=== PATIENT | male | born 1935 | race Caucasian/White ===

== ENCOUNTER 2021-08-24 14:09 | Observation (INO) ==
--- NOTE | 2021-08-24 14:26 | Emergency Department Note ---
HPI General Chief complaint: Recheck/Abnormal Lab/Rx Stated complaint: "im here for blood" Time Seen by Provider: 08/24/21 14:25 Source: patient Mode of arrival: ambulatory Limitations: no limitations History of Present Illness HPI Narrative: 86-year-old male presenting with intermittent lightheadedness. Patient has a known bladder mass and follows with Dr. Mehta of urology. He has been having hematuria and his hemoglobin 8 days ago was 7.7. Sent to the ED for admission and possible blood transfusion as Dr. Mehta will perform a TURBT tomorrow morning. Patient noted that he intermittently feels lightheaded when he stands up but otherwise has no new complaints. Denies headache, chest pain, abdominal pain, vomiting, blood in the stool, or melena. Not on anticoagulation. Related Data Home Medications Medication Instructions Recorded Confirmed latanoprost 0.005 % eye drops 1 drp OPHTHALMIC QPM /09/1408/24/21 ascorbic acid (vitamin C) 500 mg 500 mg PO QDAY cap 02/10/20 08/24/21 capsule aspirin 81 mg chewable tablet 81 mg PO QDAY tab 02/10/20 08/24/21 cholecalciferol (vitamin D3) 50 2,000 unit PO QDAY cap 02/10/20 08/24/21 mcg (2,000 unit) capsule dorzolamide-timolol (PF) 2 %-0.5 % 1 drp OPHTHALMIC BID each 02/10/20 08/24/21 eye drops in a dropperette inulin 2 gram chewable tablet 2 g PO QDAY tab 02/10/20 08/24/21 (Fiber Gummies) mecobalamin (vitamin B12) 1,000 1,000 mcg SUBLINGUAL QDAY tab 02/10/20 08/24/21 mcg disintegrating tablet,sublingual omega 4-uwl-owg-fish oil 1,000 mg 1 cap PO QDAY cap 02/10/20 08/24/21 (120 mg-180 mg) capsule brimonidine 0.2 % eye drops 1 drp OPHTHALMIC (EYE) BID ml 08/16/20 08/24/21 cyanocobalamin (vitamin B-12) 1,000 mcg PO QDAY 08/24/21 08/24/21 1,000 mcg tablet hydrochlorothiazide 50 mg tablet 50 mg PO QDAY 08/24/21 08/24/21 multivitamin 1 tab PO QDAY 08/24/21 08/24/21 Previous Rx's Medication Instructions Recorded metformin 500 mg tablet 1,000 mg PO BID #360 tab 09/06/20 atorvastatin 40 mg tablet 40 mg PO DAILY #90 tab 09/20/20 glipizide 5 mg tablet 5 mg PO QDAY #90 tab 02/01/21 amlodipine 5 mg tablet 5 mg PO BID #180 tab 03/07/21 levothyroxine 75 mcg tablet 75 mcg PO DAILY #90 tab 04/18/21 gabapentin 300 mg capsule 300 mg PO QHS #90 cap 05/30/21 losartan 100 1 tab PO QDAY #90 tab 07/11/21 mg-hydrochlorothiazide 25 mg tablet blood sugar diagnostic #100 each 07/25/21 tamsulosin 0.4 mg capsule 0.4 mg PO QHS #30 cap 08/16/21 nitrofurantoin 100 mg PO BID 10 Days #20 cap 08/22/21 monohydrate/macrocrystals 100 mg capsule Allergies Allergy/AdvReac Type Severity Reaction Status Date / Time No Known Drug Allergies Allergy Verified 08/24/21 14:11 Review of Systems ROS ROS Narrative: Narrative: Constitutional: Denies fever Eyes: Denies vision change Cardiovascular: Denies chest pain Respiratory: Denies shortness of breath or cough Gastrointestinal: Denies abdominal pain, nausea or vomiting Genitourinary: Reports as per HPI Musculoskeletal: Denies back pain Integumentary: Denies rash Neurological: Denies headache or weakness Psychiatric: Denies anxiety PENDING SALE TO [facility] Narrative Patient History Narrative: Narrative: Medical/Surgical/Family History All Active Problems (Updated 08/24/21 @ 16:42 by Jackson Porter MD) Acquired hypothyroidism (Chronic) Essential hypertension (Chronic) Nausea & vomiting (Chronic) UTI (urinary tract infection) due to Enterococcus (Chronic) Dehydration (Chronic) Hypothyroidism, unspecified (Chronic) Spinal stenosis, lumbar region with neurogenic claudication (Chronic) Low back pain (Chronic) Radiculopathy, lumbar region (Chronic) Chronic pain (Chronic) Unspecified glaucoma (Chronic) Hypercholesterolemia (Chronic) History of surgery (Chronic) Hip pain, left (Chronic) Medicare annual wellness visit, subsequent (Acute) 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) Radiculopathy, lumbosacral region (Acute) CTS (carpal tunnel syndrome) (Acute) Gross hematuria (Acute) Nausea (Acute) Fever (Acute) BPH loc w urin obs/LUTS (Acute) Renal failure (Acute) Anemia (Acute) Bladder mass (Acute) Ureteral stone (Acute) Bladder mass (Acute) Anemia (Acute) Medical History Acquired hypothyroidism Chronic pain Essential hypertension Fever Hypercholesterolemia Hypothyroidism, unspecified Low back pain Medicare annual wellness visit, subsequent Nausea Radiculopathy, lumbar region Radiculopathy, lumbosacral region Spinal stenosis, lumbar region with neurogenic claudication Unspecified glaucoma Surgical History History of surgery TF NAKUL #2 Lt. L5-S1 w/o sed 11/24/2019 TF NAKUL #1 Lt. L5-S1 w/sed 07/08/2019 LESI #3 L4-5 w/o sed 10/24/2018 LESI #2 L4-5 w/o sed 09/16/18 LESI #1 L4-5 w/o sed 08/21/2018 Family History Other Cancer Hypertension No pertinent family history Social History Smoking Status: Unknown if ever smoked Alcohol Intake Frequency: does not drink Exam Narrative Narrative: Narrative: General Limitations: no limitations General appearance: Present alert and in no apparent distress Head Head: Present atraumatic and normocephalic Eye Eye: Present normal appearance and EOMI; Absent scleral icterus or conjunctival injection ENT ENT: Present mucous membranes moist Neck Neck: Present trachea midline Chest Chest: Present symmetric chest wall rise Respiratory Respiratory: Present normal lung sounds bilaterally; Absent respiratory distress, wheezes, stridor, accessory muscle use or prolonged expiratory phase Cardiovascular Cardiovascular: Present regular rate and normal rhythm; Absent systolic murmur or diastolic murmur Adbominal Abdominal: Present soft; Absent distention, tenderness, guarding, rebound or rigidity Extremities Extremities: Present normal inspection; Absent pretibial edema Neurological Neurological: Present alert and oriented X3; Absent motor sensory deficit Psychiatric Psychiatric: Present normal affect and normal mood Skin Skin: Present warm (WNL) and dry Course Consultations Consultation #1: Dr. Mehta, urology Consultation #2: Dr. Muse, hospitalist Vital Signs Vital signs: Vital Signs Temperature 97.1 F 08/24/21 14:09 Pulse Rate 63 08/24/21 14:09 Respiratory Rate 16 08/24/21 14:09 Blood Pressure 156/62 08/24/21 14:09 Pulse Oximetry (%) 99 08/24/21 14:09 Temperature 97.1 F 08/24/21 14:09 Pulse Rate 61 08/24/21 17:02 Respiratory Rate 16 08/24/21 14:09 Blood Pressure 136/60 08/24/21 14:56 Pulse Oximetry (%) 95 08/24/21 17:02 [facility] Narrative Medical decision making narrative: 86-year-old male presenting with bladder mass and anemia. Hemoglobin today is 8.2. Vital signs are stable. EKG with no ischemic changes. Given that he is having a procedure tomorrow and has had some lightheadedness, 1 unit PRBCs ordered. Patient made n.p.o. at midnight. Endorsed to Dr. Muse for admission. Lab Data Lab results reviewed: Yes I reviewed the patient's lab results. Result diagrams: 08/24/21 14:35 08/24/21 14:35 Labs: Lab Results 08/24/21 08/24/21 Range/Units 14:35 14:35 WBC 4.8 (4.5-11.0) K/mcL RBC 2.92 L (4.63-6.08) M/mcL Hgb 8.2 L (13.7-17.5) g/dL Hct 26.8 L (40.1-51.0) % MCV 91.8 (80.0-100.0) fL MCH 28.1 (26.0-34.0) pg MCHC 30.6 L (31.0-36.0) g/dL RDW 13.8 (11.5-14.5) % Plt Count 295 (140-440) K/mcL MPV 10.3 (7.4-10.4) fL Neut % (Auto) 64.8 (38.0-78.0) % Lymph % (Auto) 17.0 (15.5-49.0) % Desha % (Auto) 11.0 (1.0-12.0) % Eos % (Auto) 6.4 (0.0-7.0) % Baso % (Auto) 0.8 (0.0-2.0) % Lymph # (Auto) 0.82 L (1.50-4.80) K/mcL Desha # (Auto) 0.53 (0.10-0.90) K/mcL Eos # (Auto) 0.31 (0.00-0.70) K/mcL Baso # (Auto) 0.04 (0.00-0.30) K/mcL Absolute Neutrophils 3.13 (1.80-8.00) K/mcL Sodium 138 (133-145) mmol/L Potassium 4.4 (3.3-5.1) mmol/L Chloride 100 (96-108) mmol/L Carbon Dioxide 24 (22-30) mmol/L Anion Gap 14.0 (8.0-16.0) BUN 28 H (8-23) mg/dL Creatinine 1.5 H (0.7-1.2) mg/dL GFR Calculation 41 Glucose 114 H (70-105) mg/dL Calcium 9.7 (8.6-10.4) mg/dL Total Bilirubin 0.2 (0.1-1.0) mg/dL AST 18 (<40) U/L ALT 10 (<40) U/L Alkaline Phosphatase 168 H (39-117) U/L Total Protein 7.5 (5.9-8.4) gm/dL Albumin 4.3 (3.2-5.2) gm/dL Globulin 3.2 (2.2-3.7) gm/dL Albumin/Globulin Ratio 1.3 (1.0-2.3) ED POC Tests ED POC Tests: CHALINO - SARS Antigen Negative Discharge Plan Patient/Caregiver Discharge Instructions Pt seen by CLIENT EXPERIENCE SPECIALIST/PA only: No Clinical Impression: Bladder mass, Anemia Patient Disposition: Xfer As Outpt/Obs ([facility]) Follow up with: Frank Herrmann DO [Primary Care Provider] - Prescriptions: No Action latanoprost 0.005 % drops 1 drp OPHTHALMIC QPM 0RF Fiber Gummies 2 gram tablet,chewable 2 g PO QDAY 0RF ascorbic acid (vitamin C) 500 mg capsule 500 mg capsule 500 mg PO QDAY 0RF metformin 500 mg tablet 1,000 mg PO BID Qty: 360 3RF atorvastatin 40 mg tablet 40 mg PO DAILY Qty: 90 1RF glipizide 5 mg tablet 5 mg PO QDAY Qty: 90 3RF amlodipine 5 mg tablet 5 mg PO BID Qty: 180 1RF levothyroxine 75 mcg tablet 75 mcg PO DAILY Qty: 90 1RF gabapentin 300 mg capsule 300 mg PO QHS Qty: 90 1RF losartan-hydrochlorothiazide 100-25 mg tablet 1 tab PO QDAY Qty: 90 1RF (DME) OneTouch Ultra Blue Test Strip Strip See Rx Instructions .ROUTE .MEDSUPPLY Qty: 100 3RF Rx Instructions: use to test blood sugars once daily nitrofurantoin monohyd/m-cryst 100 mg capsule 100 mg PO BID 10 Days Qty: 20 0RF Rx Instructions: must administer with a meal/food dorzolamide-timolol (PF) 2-0.5 % dropperette 1 drp OPHTHALMIC BID 0RF mecobalamin (vitamin B12) 1,000 mcg tablet,disintegrating 1,000 mcg SUBLINGUAL QDAY 0RF brimonidine 0.2 % drops 1 drp ophthalmic (eye) BID 0RF Rx Instructions: administer approximately 8 hours apart cholecalciferol (vitamin D3) 50 mcg (2,000 unit) capsule 2,000 unit PO QDAY 0RF aspirin 81 mg tablet,chewable 81 mg PO QDAY 0RF omega 6-ekx-icf-fish oil 1,000 mg (120 mg-180 mg) capsule 1 cap PO QDAY 0RF multivitamin [Daily Multivitamin] Tablet 1 tab PO QDAY 0RF hydrochlorothiazide 50 mg Tablet 50 mg PO QDAY 0RF cyanocobalamin (vitamin B-12) 1,000 mcg Tablet 1,000 mcg PO QDAY 0RF tamsulosin 0.4 mg capsule 0.4 mg PO QHS Qty: 30 3RF
[2021-08-24] MEDS: 0.9 % SODIUM CHLORIDE 250 ML IV SCH ×2 (15:31→17:58)
[2021-08-24 15:46] LABS: Basophils # (Auto) 0.04 K/mcL (0.00-0.30); Basophils % (Auto) 0.8 % (0.0-2.0); Eosinophils # (Auto) 0.31 K/mcL (0.00-0.70); Eosinophils % (Auto) 6.4 % (0.0-7.0); Hematocrit 26.8 % (40.1-51.0); Hemoglobin 8.2 g/dL (13.7-17.5); Lymphocytes # (Auto) 0.82 K/mcL (1.50-4.80); Mean Cell Volume 91.8 fL (80.0-100.0); Mean Corpuscular HGB Conc 30.6 g/dL (31.0-36.0); Mean Platelet Volume 10.3 fL (7.4-10.4); Monocytes # (Auto) 0.53 K/mcL (0.10-0.90); Neutrophils % (Auto) 64.8 % (38.0-78.0); Platelet Count 295 K/mcL (140-440); RBC 2.92 M/mcL (4.63-6.08); Red Cell Distribution Width 13.8 % (11.5-14.5); WBC 4.8 K/mcL (4.5-11.0)
[2021-08-24] MEDS ORDERED: 0.9 % SODIUM CHLORIDE 250 ML IV SCH (16:00)
[2021-08-24 16:17] LABS: ALT/SGPT 10 U/L (<40); AST/SGOT 18 U/L (<40); Albumin 4.3 gm/dL (3.2-5.2); Albumin/Globulin Ratio 1.3 (1.0-2.3); Alkaline Phosphatase 168 U/L (39-117); Bilirubin,Total 0.2 mg/dL (0.1-1.0); Blood Urea Nitrogen 28 mg/dL (8-23); Calcium 9.7 mg/dL (8.6-10.4); Carbon Dioxide 24 mmol/L (22-30); Chloride 100 mmol/L (96-108); Globulin 3.2 gm/dL (2.2-3.7); Glomerular Filtration Rate 41; Glucose 114 mg/dL (70-105)
--- NOTE | 2021-08-24 17:51 | Internal Med History&Physical ---
HPI History of Present Illness Patient information: Note initiated : 08/24/21 at 5:39 pm Service Date, if different from initiated Date: [] Patient: Gavin Bowen a 86 y/o M admitted on 08/24/21 for "im here for blood". Chief Complaint: [] Chief complaint: Admit for blood transfusion and bladder surgery History of present illness: Mr. Bowen is a 86 year old M with history of intermittent gross hematuria, obstructive urinary symptoms, diabetes mellitus, hypothyroidism, glaucoma, carpal tunnel syndrome ,multiple back surgeries, type 2 diabetes mellitus is being admitted from the urology office for blood transfusion and TURBT surgery tomorrow Patient has been having some orthostatic symptoms of late. Says he feels lightheaded and dizzy only on standing up "I have to stand up real slow and carefully" Vital signs stable in ER. Hemoglobin 8.2 on admission. Transferred 1 unit of PRBC by ER, In anticipation of blood loss tomorrow during surgery. Constitutional Constitutional: Absent anorexia, chills, fatigue, fever(s), headache(s), lethargy, malaise or night sweats Cardiovascular Cardiovascular: Absent chest pain, chest pain at rest, diaphoresis, irregular heart rhythm or lightheadedness Respiratory Respiratory: Absent hemoptysis, wheezing or excessive phlegm production Gastrointestinal Gastrointestinal: Absent diarrhea, hematemesis, melena, nausea or vomiting Genitourinary Genitourinary: change in urinary stream, difficulty urinating, dysuria, hematuria and urinary frequency Neurological Neurological: Absent abnormal gait, abnormal speech, confusion, dizziness or headache(s) PFSH PFSH All Active Problems Acquired hypothyroidism (Chronic) Essential hypertension (Chronic) Nausea & vomiting (Chronic) UTI (urinary tract infection) due to Enterococcus (Chronic) Dehydration (Chronic) Hypothyroidism, unspecified (Chronic) Spinal stenosis, lumbar region with neurogenic claudication (Chronic) Low back pain (Chronic) Radiculopathy, lumbar region (Chronic) Chronic pain (Chronic) Unspecified glaucoma (Chronic) Hypercholesterolemia (Chronic) History of surgery (Chronic) Hip pain, left (Chronic) Medicare annual wellness visit, subsequent (Acute) 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) Radiculopathy, lumbosacral region (Acute) CTS (carpal tunnel syndrome) (Acute) Gross hematuria (Acute) Nausea (Acute) Fever (Acute) BPH loc w urin obs/LUTS (Acute) Renal failure (Acute) Anemia (Acute) Bladder mass (Acute) Ureteral stone (Acute) Bladder mass (Acute) Anemia (Acute) Medical History Acquired hypothyroidism Chronic pain Essential hypertension Fever Hypercholesterolemia Hypothyroidism, unspecified Low back pain Medicare annual wellness visit, subsequent Nausea Radiculopathy, lumbar region Radiculopathy, lumbosacral region Spinal stenosis, lumbar region with neurogenic claudication Unspecified glaucoma Surgical History History of surgery TF NAKUL #2 Lt. L5-S1 w/o sed 11/24/2019 TF NAKUL #1 Lt. L5-S1 w/sed 07/08/2019 LESI #3 L4-5 w/o sed 10/24/2018 LESI #2 L4-5 w/o sed 09/16/18 LESI #1 L4-5 w/o sed 08/21/2018 Family History Other Cancer Hypertension No pertinent family history Social History smoking status: Former smoker quit date: 05/28/69 alcohol intake frequency: does not drink MEDS/ALLERGIES Home Medications and Allergies Home Medications Medication Instructions Recorded Confirmed Type latanoprost 0.005 % eye drops 1 drp OPHTHALMIC QPM 10/30/19 08/24/21 History ascorbic acid (vitamin C) 500 mg 500 mg PO QDAY cap 02/10/20 08/24/21 History capsule aspirin 81 mg chewable tablet 81 mg PO QDAY tab 02/10/20 08/24/21 History cholecalciferol (vitamin D3) 50 2,000 unit PO QDAY cap 02/10/20 08/24/21 History mcg (2,000 unit) capsule dorzolamide-timolol (PF) 2 %-0.5 % 1 drp OPHTHALMIC BID each 02/10/20 08/24/21 History eye drops in a dropperette inulin 2 gram chewable tablet 2 g PO QDAY tab 02/10/20 08/24/21 History (Fiber Gummies) mecobalamin (vitamin B12) 1,000 1,000 mcg SUBLINGUAL QDAY tab 02/10/20 08/24/21 History mcg disintegrating tablet,sublingual omega 3-rzz-pzp-fish oil 1,000 mg 1 cap PO QDAY cap 02/10/20 08/24/21 History (120 mg-180 mg) capsule brimonidine 0.2 % eye drops 1 drp OPHTHALMIC (EYE) BID ml 08/16/20 08/24/21 History metformin 500 mg tablet 1,000 mg PO BID #360 tab 09/06/20 08/24/21 Rx atorvastatin 40 mg tablet 40 mg PO DAILY #90 tab 09/20/20 08/24/21 Rx glipizide 5 mg tablet 5 mg PO QDAY #90 tab 02/01/21 08/24/21 Rx amlodipine 5 mg tablet 5 mg PO BID #180 tab 03/07/21 08/24/21 Rx levothyroxine 75 mcg tablet 75 mcg PO DAILY #90 tab 04/18/21 08/24/21 Rx gabapentin 300 mg capsule 300 mg PO QHS #90 cap 05/30/21 08/24/21 Rx losartan 100 1 tab PO QDAY #90 tab 07/11/21 08/24/21 Rx mg-hydrochlorothiazide 25 mg tablet blood sugar diagnostic #100 each 07/25/21 08/24/21 Rx tamsulosin 0.4 mg capsule 0.4 mg PO QHS #30 cap 08/16/21 08/24/21 Rx nitrofurantoin 100 mg PO BID 10 Days #20 cap 08/22/21 08/24/21 Rx monohydrate/macrocrystals 100 mg capsule cyanocobalamin (vitamin B-12) 1,000 mcg PO QDAY 08/24/21 08/24/21 History 1,000 mcg tablet hydrochlorothiazide 50 mg tablet 50 mg PO QDAY 08/24/21 08/24/21 History multivitamin 1 tab PO QDAY 08/24/21 08/24/21 History Allergies Allergy/AdvReac Type Severity Reaction Status Date / Time No Known Drug Allergies Allergy Verified 08/24/21 14:11 EXAM Constitutional Vitals: Temp Pulse Resp BP Pulse Ox 97.1 F 61 16 136/60 95 08/24/21 14:09 08/24/21 17:02 08/24/21 14:09 08/24/21 14:56 08/24/21 17:02 General appearance: average body habitus, cooperative and no acute distress Head Head exam: Present atraumatic and normocephalic Eye Eye exam: Present normal appearance ENT ENT exam: Present mucous membranes moist Respiratory Respiratory exam: Present normal respiratory exam and CTAB; Absent accessory muscle use, rales, respiratory distress, stridor or wheezes Cardiovascular Cardiovascular exam: Present normal rate and rhythm and RRR; Absent bradycardia, diastolic murmur, gallop, irregular rhythm or rubs GI/Abdominal GI/Abdominal exam: Present normal bowel sounds and soft; Absent distended, gu arding or rebound Expanded Lower Extremity Exam Hip exam: Present normal inspection; Absent swelling Back Exam Back exam: Present normal inspection; Absent CVA tenderness (L), CVA tenderness (R), paraspinal tenderness or vertebral tenderness Neurological Exam Neurological exam: Present alert and oriented X3; Absent abnormal gait or motor sensory deficit DATA Data Completed and Pending Labs: Labs from last 24 hours 08/24/21 08/24/21 14:35 14:35 WBC 4.8 RBC 2.92 L Hgb 8.2 L Hct 26.8 L MCV 91.8 MCH 28.1 MCHC 30.6 L RDW 13.8 Plt Count 295 MPV 10.3 Neut % (Auto) 64.8 Lymph % (Auto) 17.0 Storey % (Auto) 11.0 Eos % (Auto) 6.4 Baso % (Auto) 0.8 Lymph # (Auto) 0.82 L Storey # (Auto) 0.53 Eos # (Auto) 0.31 Baso # (Auto) 0.04 Absolute Neutrophils 3.13 Sodium 138 Potassium 4.4 Chloride 100 Carbon Dioxide 24 Anion Gap 14.0 BUN 28 H Creatinine 1.5 H GFR Calculation 41 Glucose 114 H Calcium 9.7 Total Bilirubin 0.2 AST 18 ALT 10 Alkaline Phosphatase 168 H Total Protein 7.5 Albumin 4.3 Globulin 3.2 Albumin/Globulin Ratio 1.3 A/P Narrative A/P Narrative: Mr. Bowen is a 86 year old M with history of intermittent gross hematuria, obstructive urinary symptoms, diabetes mellitus, hypothyroidism, glaucoma, carpal tunnel syndrome ,multiple back surgeries, type 2 diabetes mellitus is being admitted from the urology office for blood transfusion and TURBT surgery tomorrow' #Acute blood loss anemia secondary to hematuria Recently treated Enterococcus UTI (sensitive to nitrofurantoin). anticipate possible bacteremia during the surgery. Hence will cover with IV ceftriaxone 1 g daily for the next 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 No evidence of metastatic adenopathy. Urology attempted cystoscopy in the clinic but it was difficult due to poor visualization from hematuria. Considering his significant orthostatic symptoms, he was admitted for blood transfusion. 1 unit of RBC ordered by ER. This should help with perioperative blood loss during surgery. We will monitor after the surgery and repeat CBC to ensure hemoglobin stays above 8. Please check orthostatic vital signs on POD 1. N.p.o. after midnight #HTN-established in family practice clinic. On losartan hydrochlorothiazide and amlodipine, hold both. #Type 2 diabetes mellitus-on Metformin 1000 mg twice daily and glipizide. Hold both. Accu-Cheks before meals and at bedtime ordered. #Hypothyroidism-on levothyroxine 25 mcg daily Time Spent With Patient Time: Total time spent is greater than 50% in coordination of care (as documented) at patient's floor/unit and/or counseling patient: Total time spent with greater than 50% in coordination of care (as documented) at patient's floor/unit and/or counseling patient:: 50 - 70 minutes
[2021-08-24] MEDS ORDERED: HYDROcodone/APAP 5/325MG TABLET PO PRN (17:54)
[2021-08-24] MEDS ORDERED: ACETAMINOPHEN 325 MG TABLET PO PRN (17:54)
[2021-08-24] MEDS ORDERED: ONDANSETRON 4 MG/2 ML VIAL IV PRN (17:54)
[2021-08-24] MEDS ORDERED: cefTRIAXone 1 GM in DEXTROSE 5% IN WATER 50 ML IV SCH (18:00)
[2021-08-24] MEDS: cefTRIAXone 1 GM VIAL IV SCH (18:30)
[2021-08-24] MEDS: GABAPENTIN 300 MG CAPSULE PO SCH (22:14)
[2021-08-24] MEDS: BRIMONIDINE OPHTH DROPS 1 GTT BOTTLE 5ML OU SCH ×2 (22:14→22:33)
[2021-08-24] MEDS: SENNOSIDES 1 TABLET PO SCH (22:15)
[2021-08-24] MEDS: DOCUSATE SODIUM 100 MG CAPSULE PO SCH (22:15)
[2021-08-24] MEDS: TAMSULOSIN 0.4 MG CAPSULE PO SCH (22:15)
[2021-08-24] MEDS: 0.9 % SODIUM CHLORIDE 10 ML SYRINGE IV SCH (22:15)
[2021-08-24] MEDS: DORZOLAMIDE TIMOLOL OU SCH (22:28)
[2021-08-24] MEDS: LATANOPROST OPHTH DROPS 2.5ML BOTTLE OU SCH (22:28)
[2021-08-25] MEDS: 0.9 % SODIUM CHLORIDE 10 ML SYRINGE IV SCH ×4 (04:01→21:20)
[2021-08-25] MEDS ORDERED: SCOPOLAMINE 1 PATCH PATCH TOPICAL PRN (06:00)
[2021-08-25] MEDS ORDERED: IPRATROPIUM/ALBUTEROL 3 ML AMPUL.NEB NEB PRN ×2 (06:00→17:30)
[2021-08-25 06:43] LABS: Basophils # (Auto) 0.05 K/mcL (0.00-0.30); Basophils % (Auto) 0.8 % (0.0-2.0); Eosinophils # (Auto) 0.41 K/mcL (0.00-0.70); Eosinophils % (Auto) 6.9 % (0.0-7.0); Hemoglobin 8.5 g/dL (13.7-17.5); Lymphocytes # (Auto) 1.26 K/mcL (1.50-4.80); Lymphocytes % (Auto) 21.2 % (15.5-49.0); Mean Cell Volume 89.7 fL (80.0-100.0); Mean Corpuscular HGB Conc 31.5 g/dL (31.0-36.0); Mean Platelet Volume 10.5 fL (7.4-10.4); Monocytes # (Auto) 0.66 K/mcL (0.10-0.90); Monocytes % (Auto) 11.1 % (1.0-12.0); Platelet Count 250 K/mcL (140-440); RBC 3.01 M/mcL (4.63-6.08); Red Cell Distribution Width 14.3 % (11.5-14.5)
[2021-08-25 07:09] LABS: Estimated Average Glucose(eAG) 128 mg/dL; Hemoglobin A1C 6.1 % Hgb (4.0-6.0)
[2021-08-25 07:10] LABS: Blood Urea Nitrogen 26 mg/dL (8-23); Calcium 9.2 mg/dL (8.6-10.4); Carbon Dioxide 25 mmol/L (22-30); Chloride 104 mmol/L (96-108); Glomerular Filtration Rate 45; Glucose 111 mg/dL (70-105)
[2021-08-25] MEDS: LEVOTHYROXINE 75 MCG TABLET PO SCH (07:30)
--- NOTE | 2021-08-25 07:51 | Internal Med Progress Note ---
SUBJECTIVE Subjective Patient information: Note initiated : 08/25/21 at 7:48 am Service Date, if different from initiated Date: [] Patient: Gavin Bowen a 86 y/o M admitted on 08/24/21 for "im here for blood". Chief Complaint: [] Interval history: Mr. Bowen is a 86 year old M with history of intermittent gross hematuria, obstructive urinary symptoms, diabetes mellitus, hypothyroidism, glaucoma, carpal tunnel syndrome ,multiple back surgeries, type 2 diabetes mellitus is being admitted from the urology office for blood transfusion and TURBT surgery tomorrow Patient has been having some orthostatic symptoms of late. Says he feels l ightheaded and dizzy only on standing up "I have to stand up real slow and carefully" Vital signs stable in ER. Hemoglobin 8.2 on admission. Transferred 1 unit of PRBC by ER, In anticipation of blood loss tomorrow during surgery. 08/25-Dr. Mehta planning on surgery this afternoon. Continue to be n.p.o. He is asymptomatic. No distress. Awaiting surgery. Still having hematuria. Constitutional Vitals: Vital Signs Temp Pulse Resp BP Pulse Ox 97.9 F 59 L 18 115/51 94 08/25/21 06:59 08/25/21 06:59 08/25/21 06:59 08/25/21 06:59 08/25/21 06:59 Period Temp Pulse Resp BP Sys/Jackson Pulse Ox Last 24 Hr 97.1 F-99.7 F 52-81 16-18 112-163/49-71 92-100 Intake and Output 08/24/21 08/25/21 08/25/21 21:59 05:59 13:59 Intake Total 632 0 0 Output Total 200 350 Balance 432 -350 0 Weight 79.379 kg Intake & Output: Intake & Output 08/24/21 08/25/21 08/25/21 21:59 05:59 13:59 Intake Total 632 0 0 Output Total 200 350 Balance 432 -350 0 Weight 79.379 kg Intake: IV 0 Sodium Chloride 0.9% 250 ml @ 0 20 mls/hr IV .[id number] RICARDO Rx#: [id number] Oral 240 0 Blood Product 392 Output: Void Amount 200 350 Other: Meal Dinner Percent of Meal Consumed 100% Feeding Ability Independent Urine Appearance Clear Clear Hematuria Hematuria Urine Color Blood Tinged Blood Tinged Urine Odor Normal Normal General appearance: average body habitus, cooperative and no acute distress Head Head exam: Present atraumatic and normocephalic Eye Eye exam: Present normal appearance Respiratory Respiratory exam: Present normal respiratory exam and CTAB; Absent accessory muscle use, decreased breath sounds or respiratory distress Cardiovascular Cardiovascular exam: Present normal rate and rhythm and RRR; Absent bradycardia, gallop, systolic murmur or tachycardia GI/Abdominal GI/Abdominal exam: Present soft Neurological Exam Neurological exam: Present alert and oriented X3; Absent altered or motor sensory deficit OBJ DATA Labs CBC & Chem 7: 08/25/21 05:43 08/25/21 05:43 Labs: Abnormal Lab Results 08/25/21 08/25/21 08/24/21 05:43 05:43 14:35 RBC 3.01 L Hgb 8.5 L Hct 27.0 L MCHC MPV 10.5 H Lymph # (Auto) 1.26 L BUN 26 H 28 H Creatinine 1.4 H 1.5 H Glucose 111 H 114 H Hemoglobin A1c 6.1 H Alkaline Phosphatase 168 H 08/24/21 14:35 RBC 2.92 L Hgb 8.2 L Hct 26.8 L MCHC 30.6 L MPV Lymph # (Auto) 0.82 L BUN Creatinine Glucose Hemoglobin A1c Alkaline Phosphatase Meds: Medications Acetaminophen (Acetaminophen 325 Mg Tablet) 650 mg PO Q6HP PRN; Protocol PRN Reason: Per Pain Protocol/Fever > 101 Hydrocodone Bitart/Acetaminophen (Hydrocodone/Apap 5/325mg Tablet) 1 tab PO Q4HP PRN; Protocol PRN Reason: Per Pain Protocol Albuterol/Ipratropium (Ipratropium/Albuterol 3 Ml Ampul.Neb) 3 ml NEB ONCE PRN PRN Reason: Shortness Of Breath Stop: 08/25/21 23:59 Ascorbic Acid (Ascorbic Acid 500 Mg Tablet) 500 mg PO DAILY [facility] Atorvastatin Calcium (Atorvastatin 40 Mg Tablet) 40 mg PO DAILY [facility] [place] Brimonidine Tartrate (Brimonidine Ophth Drops 1 Gtt Bottle 5ml) 1 gtt OU BID [facility] Last Admin: 08/24/21 22:33 Dose: 1 gtt Documented by: Ceftriaxone Sodium (Ceftriaxone 1 Gm Vial) 1 gm IV DAILY [facility] Last Admin: 08/24/21 18:30 Dose: 1 gm Documented by: Cyanocobalamin (Cyanocobalamin (Vitamin B-12) 500 Mcg Tablet) 1,000 mcg PO DAILY [facility] Diagnostic Test (Pha) (Accu-Chek 1 Each Strip) 1 each FS ACHS [facility] Last Admin: 08/25/21 07:23 Dose: 1 each Documented by: Docusate Sodium (Docusate Sodium 100 Mg Capsule) 100 mg PO BID [facility] [place] Last Admin: 08/24/21 22:15 Dose: 100 mg Documented by: Fish Oil (Fish Oil 1,000 Mg Capsule) 1,000 mg PO DAILY [facility] Gabapentin (Gabapentin 300 Mg Capsule) 300 mg PO QHS [facility] [place] Last Admin: 08/24/21 22:14 Dose: 300 mg Documented by: Iron Carb/Multivit/[place]/Folic Acid (Multivit,Ther Iron,Ca,Fa & Min 1 Tablet) 1 tab PO DAILY [facility] [place] Latanoprost (Latanoprost Ophth Drops 2.5ml Bottle) 1 gtt OU HS [facility] [place] Last Admin: 08/24/21 22:28 Dose: 1 gtt Documented by: Levothyroxine Sodium (Levothyroxine 75 Mcg Tablet) 75 mcg PO ACB [facility] Last Admin: 08/25/21 07:30 Dose: 75 mcg Documented by: Ondansetron HCl (Ondansetron 4 Mg/2 Ml Vial) 4 mg IV Q6HP PRN PRN Reason: Nausea And Vomiting Dorzolamide-Timolol (Pf) 2-0.5 % Dropperette 1 dose OU BID [facility] [place] Last Admin: 08/24/21 22:28 Dose: 1 dose Documented by: Scopolamine (Scopolamine 1 Patch Patch) 1 patch TOPICAL PREOP PRN PRN Reason: Nausea And Vomiting Stop: 08/25/21 23:59 Senna (Sennosides 1 Tablet) 2 tab PO HS [facility] [place] Last Admin: 08/24/21 22:15 Dose: 2 tab Documented by: Sodium Chloride (0.9 % Sodium Chloride 10 Ml Syringe) 10 ml IV Q8 [facility] [place] Last Admin: 08/25/21 04:01 Dose: 10 ml Documented by: Tamsulosin HCl (Tamsulosin 0.4 Mg Capsule) 0.4 mg PO QHS [facility] [place] Last Admin: 08/24/21 22:15 Dose: 0.4 mg Documented by: Vitamin D (Vitamin D3 25 Mcg Tablet) 50 mcg PO DAILY [facility] A/P Narrative A/P Narrative: Mr. Bowen is a 86 year old M with history of intermittent gross hematuria, obstructive urinary symptoms, diabetes mellitus, hypothyroidism, glaucoma, carpal tunnel syndrome ,multiple back surgeries, type 2 diabetes mellitus is being admitted from the urology office for blood transfusion and TURBT surgery tomorrow' #Acute blood loss anemia secondary to hematuria Recently treated Enterococcus UTI (sensitive to nitrofurantoin). anticipate possible bacteremia during the surgery. Hence will cover with IV ceftriaxone 1 g daily for the next 3 days (August 24& August 26) CT abdomen pelvis shows 6 cm sessile mass arising from posterior urinary bladder wall suspicious for transitional cell carcinoma. No evidence of metastatic adenopathy. Urology attempted cystoscopy in the clinic but it was difficult due to poor visualization from hematuria. Considering his significant orthostatic symptoms, he was admitted for blood transfusion. 1 unit of RBC given. This should help with perioperative blood loss during juan david enrique. We will monitor after the surgery and repeat CBC to ensure hemoglobin stays above 8. Please check orthostatic vital signs on POD 1. #CKD stage II, renal function seems to be at baseline. #HTN-established in family practice clinic. On losartan hydrochlorothiazide and amlodipine, hold both. #Type 2 diabetes mellitus-on Metformin 1000 mg twice daily and glipizide. Hold both. Accu-Cheks before meals and at bedtime ordered. #Hypothyroidism-on levothyroxine 25 mcg daily DVT prophylaxis-subcutaneous heparin starting tomorrow morning Time Spent With Patient Time: Total time spent is greater than 50% in coordination of care (as documented) at patient's floor/unit and/or counseling patient: Total time spent with greater than 50% in coordination of care (as documented) at patient's floor/unit and/or counseling patient:: 15 - 24 minutes
[2021-08-25] MEDS: VITAMIN D3 25 MCG TABLET PO SCH (09:01)
[2021-08-25] MEDS: FISH OIL 1,000 MG CAPSULE PO SCH (09:01)
[2021-08-25] MEDS: ASCORBIC ACID 500 MG TABLET PO SCH (09:01)
[2021-08-25] MEDS: CYANOCOBALAMIN (VITAMIN B-12) 500 MCG TABLET PO SCH (09:01)
[2021-08-25] MEDS: MULTIVIT,THER IRON,CA,FA & MIN 1 TABLET PO SCH (09:01)
[2021-08-25] MEDS: DOCUSATE SODIUM 100 MG CAPSULE PO SCH ×2 (09:01→21:19)
[2021-08-25] MEDS: cefTRIAXone 1 GM VIAL IV SCH (09:09)
[2021-08-25] MEDS: ATORVASTATIN 40 MG TABLET PO SCH (09:13)
[2021-08-25] MEDS: BRIMONIDINE OPHTH DROPS 1 GTT BOTTLE 5ML OU SCH ×2 (10:33→21:18)
[2021-08-25] MEDS: DORZOLAMIDE TIMOLOL OU SCH ×2 (10:34→21:18)
--- NOTE | 2021-08-25 12:40 | EKG ---
[facility] Test Date: 2021-08-24 Pat Name: Gavin Bowen Department: ED Room: Gender: Male [employer]: CS : [id number] Requested By: Jackson Porter Order Number: [id number] Reading MD: Patrick Treadwell Measurements Intervals [place] Rate: 55 P: 19 TX: 179 QRS: -45 QRSD: 149 T: 98 QT: 448 QTc: 429 Interpretive Statements Sinus rhythm Left bundle branch block Electronically Signed On 08-25-2021 12:39:54 PDT by Patrick Treadwell /store/[email or web address]/[id number]
--- NOTE | 2021-08-25 13:28 | Internal Med Progress Note ---
SUBJECTIVE Subjective Patient information: Note initiated : 08/25/21 at 1:24 pm Service Date, if different from initiated Date: [] Patient: Gavin Bowen a 86 y/o M admitted on 08/24/21 for "im here for blood". Chief Complaint: [] Interval history: Mr. Bowen is a 86 year old M with history of intermittent gross hematuria, obstructive urinary symptoms, diabetes mellitus, hypothyroidism, glaucoma, carpal tunnel syndrome ,multiple back surgeries, type 2 diabetes mellitus is being admitted from the urology office for blood transfusion and TURBT surgery tomorrow Patient has been having some orthostatic symptoms of late. Says he feels l ightheaded and dizzy only on standing up "I have to stand up real slow and carefully" Vital signs stable in ER. Hemoglobin 8.2 on admission. Transferred 1 unit of PRBC by ER, In anticipation of blood loss tomorrow during surgery. 08/25-Dr. Mehta planning on surgery this afternoon. Continue to be n.p.o. He is asymptomatic. No distress. Awaiting surgery. Still having hematuria. 08/26 Constitutional Vitals: Vital Signs Temp Pulse Resp BP Pulse Ox 98.0 F 62 18 139/55 95 08/25/21 11:47 08/25/21 11:47 08/25/21 11:47 08/25/21 11:47 08/25/21 11:47 Period Temp Pulse Resp BP Sys/Jackson Pulse Ox Last 24 Hr 97.1 F-99.7 F 52-81 16-18 112-163/49-71 92-100 Intake and Output 08/24/21 08/25/21 08/25/21 21:59 05:59 13:59 Intake Total 632 0 0 Output Total 200 350 1 Balance 432 -350 -1 Weight 79.379 kg Intake & Output: Intake & Output 08/24/21 08/25/21 08/25/21 21:59 05:59 13:59 Intake Total 632 0 0 Output Total 200 350 1 Balance 432 -350 -1 Weight 79.379 kg Intake: IV 0 Sodium Chloride 0.9% 250 ml @ 0 20 mls/hr IV .[id number] RICARDO Rx#: [id number] Oral 240 0 Blood Product 392 Output: Void Amount 200 350 # of times incontinent of urine 1 Other: Meal Dinner Percent of Meal Consumed 100% Feeding Ability Independent Urine Appearance Clear Clear Hematuria Hematuria Urine Color Blood Tinged Blood Tinged Blood Tinged Urine Odor Normal Normal Exam: General: Alert, Awake, No acute Distress Eyes/N/T: EOMI, Head/Neck: neck supple, CV: RRR, No murmurs, Pulm: Clear b/l, no wheezing/rhonchi/rales Abd: soft, nontender, +BS x4 Ext: no clubbing/cyanosis/edema Neuro: Alert, no focal deficits, moves all extremities, Skin: warm/dry OBJ DATA Labs CBC & Chem 7: 08/25/21 05:43 08/25/21 05:43 Labs: Abnormal Lab Results 08/25/21 08/25/21 08/24/21 05:43 05:43 14:35 RBC 3.01 L Hgb 8.5 L Hct 27.0 L MCHC MPV 10.5 H Lymph # (Auto) 1.26 L BUN 26 H 28 H Creatinine 1.4 H 1.5 H Glucose 111 H 114 H Hemoglobin A1c 6.1 H Alkaline Phosphatase 168 H 08/24/21 14:35 RBC 2.92 L Hgb 8.2 L Hct 26.8 L MCHC 30.6 L MPV Lymph # (Auto) 0.82 L BUN Creatinine Glucose Hemoglobin A1c Alkaline Phosphatase Meds: Medications Acetaminophen (Acetaminophen 325 Mg Tablet) 650 mg PO Q6HP PRN; Protocol PRN Reason: Per Pain Protocol/Fever > 101 Hydrocodone Bitart/Acetaminophen (Hydrocodone/Apap 5/325mg Tablet) 1 tab PO Q4HP PRN; Protocol PRN Reason: Per Pain Protocol Albuterol/Ipratropium (Ipratropium/Albuterol 3 Ml Ampul.Neb) 3 ml NEB ONCE PRN PRN Reason: Shortness Of Breath Stop: 08/25/21 23:59 Ascorbic Acid (Ascorbic Acid 500 Mg Tablet) 500 mg PO DAILY [facility] Last Admin: 08/25/21 09:01 Dose: Not Given Documented by: Atorvastatin Calcium (Atorvastatin 40 Mg Tablet) 40 mg PO DAILY [facility] Last Admin: 08/25/21 09:13 Dose: Not Given Documented by: Brimonidine Tartrate (Brimonidine Ophth Drops 1 Gtt Bottle 5ml) 1 gtt OU BID [facility] Last Admin: 08/25/21 10:33 Dose: 1 gtt Documented by: Ceftriaxone Sodium (Ceftriaxone 1 Gm Vial) 1 gm IV DAILY [facility] Last Admin: 08/25/21 09:09 Dose: 1 gm Documented by: Cyanocobalamin (Cyanocobalamin (Vitamin B-12) 500 Mcg Tablet) 1,000 mcg PO DAILY [facility] Last Admin: 08/25/21 09:01 Dose: Not Given Documented by: Diagnostic Test (Pha) (Accu-Chek 1 Each Strip) 1 each FS ACHS [facility] Last Admin: 08/25/21 11:53 Dose: 1 each Documented by: Docusate Sodium (Docusate Sodium 100 Mg Capsule) 100 mg PO BID [facility] Last Admin: 08/25/21 09:01 Dose: Not Given Documented by: Fish Oil (Fish Oil 1,000 Mg Capsule) 1,000 mg PO DAILY [facility] Last Admin: 08/25/21 09:01 Dose: Not Given Documented by: Gabapentin (Gabapentin 300 Mg Capsule) 300 mg PO QHS [facility] Last Admin: 08/24/21 22:14 Dose: 300 mg Documented by: Heparin Sodium (Porcine) (Heparin 5,000 Unit/Ml Vial) 5,000 unit SQ Q12 [facility] Iron Carb/Multivit/[place]/Folic Acid (Multivit,Ther Iron,Ca,Fa & Min 1 Tablet) 1 tab PO DAILY [facility] Last Admin: 08/25/21 09:01 Dose: Not Given Documented by: Latanoprost (Latanoprost Ophth Drops 2.5ml Bottle) 1 gtt OU HS [facility] Last Admin: 08/24/21 22:28 Dose: 1 gtt Documented by: Levothyroxine Sodium (Levothyroxine 75 Mcg Tablet) 75 mcg PO ACB [facility] Last Admin: 08/25/21 07:30 Dose: 75 mcg Documented by: Ondansetron HCl (Ondansetron 4 Mg/2 Ml Vial) 4 mg IV Q6HP PRN PRN Reason: Nausea And Vomiting Dorzolamide-Timolol (Pf) 2-0.5 % Dropperette 1 dose OU BID [facility] Last Admin: 08/25/21 10:34 Dose: 1 dose Documented by: Scopolamine (Scopolamine 1 Patch Patch) 1 patch TOPICAL PREOP PRN PRN Reason: Nausea And Vomiting Stop: 08/25/21 23:59 Senna (Sennosides 1 Tablet) 2 tab PO HS [facility] Last Admin: 08/24/21 22:15 Dose: 2 tab Documented by: Sodium Chloride (0.9 % Sodium Chloride 10 Ml Syringe) 10 ml IV Q8 [facility] Last Admin: 08/25/21 13:00 Dose: 10 ml Documented by: Tamsulosin HCl (Tamsulosin 0.4 Mg Capsule) 0.4 mg PO QHS [facility] Last Admin: 08/24/21 22:15 Dose: 0.4 mg Documented by: Vitamin D (Vitamin D3 25 Mcg Tablet) 50 mcg PO DAILY [facility] Last Admin: 08/25/21 09:01 Dose: Not Given Documented by: A/P Narrative A/P Narrative: A/P: #Acute blood loss anemia secondary to hematuria: -Recently treated Enterococcus UTI (sensitive to nitrofurantoin) -CT shows 6cm sessile mass arising from posterior urinary bladder wall suspicious for transitional cell carcinoma. -No evidence of metastatic adenopathy. -Urology attempted cystoscopy in the clinic but it was difficult due to poor visualization from hematuria. -Considering his significant orthostatic symptoms, he was admitted for blood transfusion. -1 unit of RBC given. This should help with perioperative blood loss during surgery. #CKD II: #HTN: On losartan/hydrochlorothiazide/amlodipine, hold for now #DM 2: on Metformin 1000 mg twice daily and glipizide. Hold both -SSI #Hypothyroidism: on levothyroxine 25 mcg daily #ppx: heparin Time Spent With Patient Time: Total time spent is greater than 50% in coordination of care (as documented) at patient's floor/unit and/or counseling patient:
[2021-08-25] MEDS ORDERED: LIDOCAINE JEL 2% 1 TUBE 5ML TOPICAL ONE (13:55)
[2021-08-25] MEDS ORDERED: ALBUMIN HUMAN 25 GM/100 ML BAG IV ONE (14:40)
[2021-08-25] MEDS ORDERED: 0.9 % SODIUM CHLORIDE 250 ML IV SCH ×2 (14:45→16:45)
--- NOTE | 2021-08-25 15:32 | Urology Consult Note ---
HPI Data of Consult Consult date: 08/25/21 Requesting physician: Sherin Muse Primary Care Provider: Frank Herrmann DO Consult Narrative Patient Information: Note initiated : 08/25/21 at 3:21 pm Service Date, if different from initiated Date: [] Patient: Gavin Bowen 86 y/o M admitted on 08/24/21 for "im here for blood". Chief Complaint: [Gross hematuria, bladder tumor] Wale is an 86-year-old male with a 1 year history of intermittent gross hematuria. He also has significant obstructive urinary symptoms. PSA in May 2021 was within normal limits at 2.03. He reports that he has a remote history of smoking in the 1960s or prior. Urine culture on August 17, 2021 revealed Enterococcus sensitive to nitrofurantoin. Urine cytology was sent on August 17, 2021. This revealed rare atypical urothelial cells with marked acute inflammation and hematuria. CBC revealed a hemoglobin and hematocrit of 7.7 and 25.2 respectively. Serum creatinine was elevated at 1.8. Due to the elevated serum creatinine we could not obtain a CT IVP. Instead we obtained a CT KUB which revealed a 6 cm sessile mass arising from the posterior urinary bladder wall suspicious for transitional cell carcinoma. There was no evidence of metastatic adenopathy. There was also a 7 mm stone in the mid right ureter which did not result in hydroureter or hydronephrosis. 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 Renal ultrasound obtained on the same date revealed the abnormal appearance of the urinary bladder likely due to BPH however a bladder mass could not be excluded. We gave a trial of tamsulosin to help with his urinary symptoms but he reports that it caused urinary frequency and stopped taking it. Cystoscopy on August 24 was difficult due to poor visualization secondary to hematuria. Still, however, I believe that he has a large bladder mass at the bladder neck in the midline. This is obscured by clot. He also has significant anemia. He reported having dizziness when standing up. He also appears quite pale. I sent him to the emergency room for repeat labs and further evaluation. She was transfused 1 unit of packed red cells and was admitted to the hospitalist service. He was kept n.p.o. overnight. I plan to take him to the operating today for transurethral resection of bladder tumor. Chief complaint: Gross hematuria, bladder mass Reason for consult: Gross hematuria, bladder mass cc:: CC: Sherin Muse MD Review of Systems All systems: reviewed and no additional remarkable complaints except as stated Constitutional Constitutional: Present as per HPI, fatigue and weakness Genitourinary Genitourinary: as per HPI, difficulty urinating and hematuria PFSH PFSH All Active Problems (Updated 08/25/21 @ 15:32 by Jhoan Mehta MD) Bladder mass (Acute) Anemia (Acute) Ureteral stone (Acute) Renal failure (Acute) BPH loc w urin obs/LUTS (Acute) Acquired hypothyroidism (Chronic) Essential hypertension (Chronic) Nausea & vomiting (Chronic) Dehydration (Chronic) Hypothyroidism, unspecified (Chronic) Spinal stenosis, lumbar region with neurogenic claudication (Chronic) Low back pain (Chronic) Radiculopathy, lumbar region (Chronic) Chronic pain (Chronic) Unspecified glaucoma (Chronic) Hypercholesterolemia (Chronic) History of surgery (Chronic) Hip pain, left (Chronic) 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 L5-S1 w/o sed 11/24/2019 TF NAKUL #1 Lt. L5-S1 w/sed 07/08/2019 LESI #3 L4-5 w/o sed 10/24/2018 LESI #2 L4-5 w/o sed 09/16/18 LESI #1 L4-5 w/o sed 08/21/2018 Family History Other Cancer Hypertension No pertinent family history Social History smoking status: Former smoker quit date: 05/28/69 alcohol intake frequency: does not drink MEDS/ALLERGIES Home Medications and Allergies Home Medications Medication Instructions Recorded Confirmed Type latanoprost 0.005 % eye drops 1 drp OPHTHALMIC QPM 10/30/19 08/24/21 History ascorbic acid (vitamin C) 500 mg 500 mg PO QDAY cap 02/10/20 08/24/21 History capsule aspirin 81 mg chewable tablet 81 mg PO QDAY tab 02/10/20 08/24/21 History cholecalciferol (vitamin D3) 50 2,000 unit PO QDAY cap 02/10/20 08/24/21 History mcg (2,000 unit) capsule dorzolamide-timolol (PF) 2 %-0.5 % 1 drp OPHTHALMIC BID each 02/10/20 08/24/21 History eye drops in a dropperette inulin 2 gram chewable tablet 2 g PO QDAY tab 02/10/20 08/24/21 History (Fiber Gummies) mecobalamin (vitamin B12) 1,000 1,000 mcg SUBLINGUAL QDAY tab 02/10/20 08/24/21 History mcg disintegrating tablet,sublingual omega 2-cjg-wsg-fish oil 1,000 mg 1 cap PO QDAY cap 02/10/20 08/24/21 History (120 mg-180 mg) capsule brimonidine 0.2 % eye drops 1 drp OPHTHALMIC (EYE) BID ml 08/16/20 08/24/21 History metformin 500 mg tablet 1,000 mg PO BID #360 tab 09/06/20 08/24/21 Rx atorvastatin 40 mg tablet 40 mg PO DAILY #90 tab 09/20/20 08/24/21 Rx glipizide 5 mg tablet 5 mg PO QDAY #90 tab 02/01/21 08/24/21 Rx amlodipine 5 mg tablet 5 mg PO BID #180 tab 03/07/21 08/24/21 Rx levothyroxine 75 mcg tablet 75 mcg PO DAILY #90 tab 04/18/21 08/24/21 Rx gabapentin 300 mg capsule 300 mg PO QHS #90 cap 05/30/21 08/24/21 Rx losartan 100 1 tab PO QDAY #90 tab 07/11/21 08/24/21 Rx mg-hydrochlorothiazide 25 mg tablet blood sugar diagnostic #100 each 07/25/21 08/24/21 Rx tamsulosin 0.4 mg capsule 0.4 mg PO QHS #30 cap 08/16/21 08/24/21 Rx nitrofurantoin 100 mg PO BID 10 Days #20 cap 08/22/21 08/24/21 Rx monohydrate/macrocrystals 100 mg capsule cyanocobalamin (vitamin B-12) 1,000 mcg PO QDAY 08/24/21 08/24/21 History 1,000 mcg tablet hydrochlorothiazide 50 mg tablet 50 mg PO QDAY 08/24/21 08/24/21 History multivitamin 1 tab PO QDAY 08/24/21 08/24/21 History Allergies Allergy/AdvReac Type Severity Reaction Status Date / Time No Known Drug Allergies Allergy Verified 08/24/21 14:11 Physical Examination Vital Signs Vital signs: Temp Pulse Resp BP Pulse Ox 98.0 F 62 18 139/55 95 08/25/21 11:47 08/25/21 11:47 08/25/21 11:47 08/25/21 11:47 08/25/21 11:47 General physical appearance General physical exam: well developed, well nourished, no distress and no pain Eyes Eye exam: PERRL ENT ENT exam: no hearing loss Head Head exam IM: Present atraumatic, normal inspection and normocephalic Neck Neck exam: trachea midline Cardiovascular Cardiovascular exam IM: Present normal rate and rhythm Respiratory Respiratory exam: normal expansion, normal respiratory effort and clear to auscultation Abdomen Abdomen: Present soft, non tender and tender Genitourinary Genitourinary (Male): Present normal penis with no external lesions Neurologic Neurologic: Present normal coordination and normal sensation Psychiatric Psychiatric: Present oriented to time, oriented to person, oriented to place and speech is normal Results Labs Result diagrams: 08/25/21 05:43 08/25/21 05:43 Labs: Abnormal lab results 08/24/21 08/24/21 08/25/21 Range/Units 14:35 14:35 05:43 RBC 2.92 L 3.01 L (4.63-6.08) M/mcL Hgb 8.2 L 8.5 L (13.7-17.5) g/dL Hct 26.8 L 27.0 L (40.1-51.0) % MCHC 30.6 L (31.0-36.0) g/dL MPV 10.5 H (7.4-10.4) fL Lymph # (Auto) 0.82 L 1.26 L (1.50-4.80) K/mcL BUN 28 H (8-23) mg/dL Creatinine 1.5 H (0.7-1.2) mg/dL Glucose 114 H (70-105) mg/dL Hemoglobin A1c (4.0-6.0) % Hgb Alkaline Phosphatase 168 H (39-117) U/L 08/25/21 Range/Units 05:43 RBC (4.63-6.08) M/mcL Hgb (13.7-17.5) g/dL Hct (40.1-51.0) % MCHC (31.0-36.0) g/dL MPV (7.4-10.4) fL Lymph # (Auto) (1.50-4.80) K/mcL BUN 26 H (8-23) mg/dL Creatinine 1.4 H (0.7-1.2) mg/dL Glucose 111 H (70-105) mg/dL Hemoglobin A1c 6.1 H (4.0-6.0) % Hgb Alkaline Phosphatase (39-117) U/L Diabetes panel 08/24/21 08/25/21 Range/Units 14:35 05:43 Sodium 138 139 (133-145) mmol/L Potassium 4.4 4.1 (3.3-5.1) mmol/L Chloride 100 104 (96-108) mmol/L Carbon Dioxide 24 25 (22-30) mmol/L BUN 28 H 26 H (8-23) mg/dL Creatinine 1.5 H 1.4 H (0.7-1.2) mg/dL Glucose 114 H 111 H (70-105) mg/dL Hemoglobin A1c 6.1 H (4.0-6.0) % Hgb Calcium 9.7 9.2 (8.6-10.4) mg/dL AST 18 (<40) U/L ALT 10 (<40) U/L Alkaline Phosphatase 168 H (39-117) U/L Total Protein 7.5 (5.9-8.4) gm/dL Albumin 4.3 (3.2-5.2) gm/dL Calcium panel 08/24/21 08/25/21 Range/Units 14:35 05:43 Calcium 9.7 9.2 (8.6-10.4) mg/dL Albumin 4.3 (3.2-5.2) gm/dL Pituitary panel 08/24/21 08/25/21 Range/Units 14:35 05:43 Sodium 138 139 (133-145) mmol/L Potassium 4.4 4.1 (3.3-5.1) mmol/L Chloride 100 104 (96-108) mmol/L Carbon Dioxide 24 25 (22-30) mmol/L BUN 28 H 26 H (8-23) mg/dL Creatinine 1.5 H 1.4 H (0.7-1.2) mg/dL Glucose 114 H 111 H (70-105) mg/dL Calcium 9.7 9.2 (8.6-10.4) mg/dL Adrenal panel 08/24/21 08/25/21 Range/Units 14:35 05:43 Sodium 138 139 (133-145) mmol/L Potassium 4.4 4.1 (3.3-5.1) mmol/L Chloride 100 104 (96-108) mmol/L Carbon Dioxide 24 25 (22-30) mmol/L BUN 28 H 26 H (8-23) mg/dL Creatinine 1.5 H 1.4 H (0.7-1.2) mg/dL Glucose 114 H 111 H (70-105) mg/dL Calcium 9.7 9.2 (8.6-10.4) mg/dL Total Bilirubin 0.2 (0.1-1.0) mg/dL AST 18 (<40) U/L ALT 10 (<40) U/L Alkaline Phosphatase 168 H (39-117) U/L Total Protein 7.5 (5.9-8.4) gm/dL Albumin 4.3 (3.2-5.2) gm/dL All other labs normal. A/P Assessment and plan (1) Bladder mass: Status: Acute (2) Anemia: Status: Acute (3) Bladder mass: Status: Inactive (4) BPH loc w urin obs/LUTS: Status: Acute (5) Gross hematuria: Status: Acute (6) Ureteral stone: Status: Acute Plan Transurethral resection of bladder tumor possible instillation of gemcitabine 2 g Narrative A/P Narrative: Wale is an 86-year-old male with a 1 year history of intermittent gross hem aturia. He also has significant obstructive urinary symptoms. He was unable to leave a urine specimen today so I cannot say whether he may have a urinary tract infect. PSA in May 2021 was within normal limits at 2.03. He reports that he has a remote history of smoking in the 1960s or prior. Urine culture on August 17, 2021 revealed Enterococcus sensitive to nitrofurantoin. 6 months urine cytology was sent on August 17, 2021. This revealed rare atypical urothelial cells with marked acute inflammation and hematuria. CBC revealed a hemoglobin and hematocrit of 7.7 and 25.2 respectively. Serum creatinine was elevated at 1.8. Due to the elevated serum creatinine we could not obtain a CT IVP. Instead we obtained a CT KUB which revealed a 6 cm sessile mass arising from the posterior urinary bladder wall suspicious for transitional cell carcinoma. There was no evidence of metastatic adenopathy. There was also a 7 mm stone in the mid right ureter which did not result in hydroureter or hydronephrosis. 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 Renal ultrasound obtained on the same date revealed the abnormal appearance of the urinary bladder likely due to BPH however a bladder mass could not be excluded. We gave a trial of tamsulosin to help with his urinary symptoms but he reports that it caused urinary frequency and stopped taking it. Cystoscopy today was made difficult due to poor visualization secondary to hematuria. Still, however, I believe that he has a large bladder mass at the bladder neck in the midline. This is obscured by clot. He also has significant anemia. When I spoke to him last week he was not symptomatic. Currently he is having dizziness when standing up. He also appears quite pale. We discussed sending him to the emergency room for repeat labs and further evaluation. If necessary he will be admitted to the hospitalist service and transfused. I would like him to be n.p.o. after midnight so that if he remains stable I can take him to the operating room tomorrow afternoon for transurethral resection of bladder tumor. We discussed going to the operating room for transurethral resection of bladder tumor with instillation of gemcitabine 2 g. I explained the procedure to the patient along with potential risks and complications including bleeding, infection, damage to the urethra to the bladder, possible bladder perforation, postoperative urgency frequency, postoperative hematuria, postoperative pain, as well as risks of heart attack, stroke and . There are also risks to a nesthesia that she will discuss separately with anesthesia provider prior to the procedure. He understands the procedure and the risks and agrees to proceed. A signed consent form was obtained today. He also understands that he may need further blood transfusion as his hemoglobin is quite low to start. He may need to have a Campos catheter in place for a period of time postoperatively. Time Spent With Patient Time: Total time spent is greater than 50% in coordination of care (as documented) at patient's floor/unit and/or counseling patient: Total time spent with greater than 50% in coordination of care (as documented) at patient's floor/unit and/or counseling patient:: 25 - 35 minutes
[2021-08-25] MEDS ORDERED: SUGAMMADEX SODIUM 200 MG/2 ML VIAL IV ONE (15:38)
[2021-08-25] MEDS ORDERED: ONDANSETRON 4 MG/2 ML VIAL ONE (15:38)
[2021-08-25] MEDS ORDERED: ROCURONIUM 10 MG/ML ML IV ONE (15:38)
[2021-08-25] MEDS ORDERED: PROPOFOL 200 MG/20 ML VIAL IV ONE (15:38)
[2021-08-25] MEDS ORDERED: LIDOCAINE HCL/PF 100 MG/5 ML SYRINGE IV ONE (15:38)
[2021-08-25] MEDS ORDERED: GLYCOPYRROLATE 0.2 MG/ML VIAL IV ONE (15:38)
[2021-08-25] MEDS ORDERED: MAGNESIUM SULFATE 2 GM/50 ML BAG IV ONE (15:38)
[2021-08-25] MEDS ORDERED: fentaNYL 100 MCG/2 ML VIAL IV ONE (15:38)
[2021-08-25] MEDS ORDERED: DEXAMETHASONE 10 MG/ML VIAL ONE (15:38)
[2021-08-25] MEDS ORDERED: OPIUM/BELLADONNA ALKALOIDS 30 MG SUPP.RECT PR ONE (16:50)
--- NOTE | 2021-08-25 17:11 | Operative Note ---
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 Complications: none Surgeon: Jhoan Mehta Estimated blood loss (cc): 150 Specimens Removed/Pathology: other (Bladder tissue for pathologic examination) Condition: stable Disposition: PACU Operative Note Operative Note: After obtaining informed consent from the patient, he was brought to the operating room and was placed supine on the operating table. General anesthesia was provided. He was repositioned in a dorsolithotomy position was prepped and draped in usual sterile fashion. We made a decision at the beginning of the case to give the patient 2 more units of blood. His hemoglobin was low to begin with and I was afraid that if we had needs to bleeding during the case that it may drop significantly below 7. A 21 Malagasy cystoscope was passed per urethra to the bladder. Visualization was poor and I could not see anything except blood clot. The bladder was filled and the cystoscope was removed. The urethra was calibrated using [place] sounds to 30 Malagasy. The 28 Malagasy continuous- flow resectoscope sheath with obturator was nasally passed per urethra to the bladder. The obturator was removed and a Marla syringe was used to evacuate clot from the bladder. I then passed the bipolar resectoscope. I was then able to examine the bladder mass which clearly involved the bladder neck from the 6:00 to the 12 o'clock position on the right side. It was both papillary and sessile and appeared to involve the right ureteral orifice. The left ureteral orifice appeared to be intact and uninvolved. The tumor appeared to be extensive and traveled from the bladder neck for approximately 4 to 5 cm cephalad. I began resection of the tumor resection was carried out extensively and deeply into I was able to control bleeding. Tumor was evacuated and passed off the table specimen for pathologic examination. The tumor was clearly invasive of muscle and I could resect no deeper. Once the tumor was resected the base of the tumor was still hard and firm consistent with recurrent muscle invasive tumor. I then used the plasma button to remove any further visible tumor and for cautery. Once adequate hemostasis was obtained again use the loop and touched up for any residual bleeding until there was no bleeding identified. I could not identify the right ureteral orifice. The bladder was thoroughly irrigated and drained and no further bleeding was identified. There did not appear to be any perforation of the bladder. I then removed the resectoscope. Lidocaine jelly was placed in the urethra in the bladder. As the tumor appeared to be muscle invasive I did not use gemcitabine. A 22 Malagasy Campos catheter was then passed and the balloon was inflated with 30 mL of sterile water. This was then hand irrigated and ran clear to clear light pink. This was placed to gravity drainage. Due to the extensive resection I decided to give the patient a 60 mg BNO suppository and at the same time perform a bimanual examination. The prostate was grade 2-3 enlarged. There were no prostate nodules palpable. The tumor was not palpable. Patient was then returned to the spine position. He was awakened and returned to the recovery room in stable condition. A total of 1 unit packed red blood cells was given during the procedure. The second unit will be given on the floor.
[2021-08-25] MEDS ORDERED: ONDANSETRON 4 MG/2 ML VIAL IV PRN (17:30)
[2021-08-25] MEDS ORDERED: MEPERIDINE 25 MG/ML VIAL IV PRN (17:30)
[2021-08-25] MEDS ORDERED: LACTATED RINGERS 1,000 ML IV SCH (17:30)
[2021-08-25] MEDS ORDERED: fentaNYL 100 MCG/2 ML VIAL IV PRN (17:30)
[2021-08-25] MEDS ORDERED: NALOXONE HCL 0.4 MG/ML VIAL IV PRN (17:30)
[2021-08-25] MEDS ORDERED: LACTATED RINGERS 250 ML IV PRN (17:30)
[2021-08-25 18:06] LABS: Basophils # (Auto) 0.04 K/mcL (0.00-0.30); Basophils % (Auto) 0.5 % (0.0-2.0); Eosinophils # (Auto) 0.44 K/mcL (0.00-0.70); Eosinophils % (Auto) 5.5 % (0.0-7.0); Hemoglobin 10.2 g/dL (13.7-17.5); Lymphocytes # (Auto) 0.92 K/mcL (1.50-4.80); Lymphocytes % (Auto) 11.4 % (15.5-49.0); Mean Cell Volume 89.6 fL (80.0-100.0); Mean Corpuscular HGB Conc 31.9 g/dL (31.0-36.0); Monocytes # (Auto) 0.43 K/mcL (0.10-0.90); Monocytes % (Auto) 5.3 % (1.0-12.0); Neutrophils % (Auto) 77.3 % (38.0-78.0); Platelet Count 211 K/mcL (140-440); RBC 3.57 M/mcL (4.63-6.08); Red Cell Distribution Width 13.7 % (11.5-14.5)
[2021-08-25] MEDS: LATANOPROST OPHTH DROPS 2.5ML BOTTLE OU SCH (21:18)
[2021-08-25] MEDS: GABAPENTIN 300 MG CAPSULE PO SCH (21:18)
[2021-08-25] MEDS: SENNOSIDES 1 TABLET PO SCH (21:18)
[2021-08-25] MEDS: TAMSULOSIN 0.4 MG CAPSULE PO SCH (21:19)
[2021-08-26] MEDS: 0.9 % SODIUM CHLORIDE 10 ML SYRINGE IV SCH ×2 (06:02→06:05)
[2021-08-26 07:02] LABS: Hematocrit 33.3 % (40.1-51.0); Hemoglobin 10.8 g/dL (13.7-17.5); Mean Cell Volume 87.6 fL (80.0-100.0); Mean Corpuscular HGB Conc 32.4 g/dL (31.0-36.0); Mean Platelet Volume 10.3 fL (7.4-10.4); Platelet Count 259 K/mcL (140-440); Red Cell Distribution Width 13.8 % (11.5-14.5); WBC 7.2 K/mcL (4.5-11.0)
[2021-08-26 07:29] LABS: ALT/SGPT 11 U/L (<40); AST/SGOT 16 U/L (<40); Albumin 3.9 gm/dL (3.2-5.2); Albumin/Globulin Ratio 1.5 (1.0-2.3); Alkaline Phosphatase 128 U/L (39-117); Bilirubin,Direct < 0.2 mg/dL (0-0.3); Bilirubin,Total 0.4 mg/dL (0.1-1.0); Blood Urea Nitrogen 25 mg/dL (8-23); Carbon Dioxide 24 mmol/L (22-30); Chloride 101 mmol/L (96-108); Globulin 2.6 gm/dL (2.2-3.7); Glomerular Filtration Rate 49; Glucose 207 mg/dL (70-105); Lactate Dehydrogenase 173 U/L (135-225); Phosphorous 4.1 mg/dL (2.5-4.5); Triglycerides 104 mg/dL (<150); Uric Acid 7.2 mg/dL (2.5-8.0)
[2021-08-26] MEDS ORDERED: DEXTROSE 50% 50 ML VIAL IV PRN (07:30)
[2021-08-26] MEDS ORDERED: DEXTROSE 31 GM ORAL.SUSP PO PRN (07:30)
[2021-08-26] MEDS ORDERED: INSULIN LISPRO 1 UNIT/0.01 ML UNIT SQ SCH (07:30)
--- NOTE | 2021-08-26 07:30 | Internal Med Progress Note ---
SUBJECTIVE Subjective Patient information: Note initiated : 08/26/21 at 7:25 am Service Date, if different from initiated Date: [] Patient: Gavin Bowen a 86 y/o M admitted on 08/24/21 for "im here for blood". Chief Complaint: [] Interval history: Mr. Bowen is a 86 year old M with history of intermittent gross hematuria, obstructive urinary symptoms, diabetes mellitus, hypothyroidism, glaucoma, carpal tunnel syndrome ,multiple back surgeries, type 2 diabetes mellitus is being admitted from the urology office for blood transfusion and TURBT surgery tomorrow Patient has been having some orthostatic symptoms of late. Says he feels l ightheaded and dizzy only on standing up "I have to stand up real slow and carefully" Vital signs stable in ER. Hemoglobin 8.2 on admission. Transferred 1 unit of PRBC by ER, In anticipation of blood loss tomorrow during surgery. 08/25-Dr. Mehta planning on surgery this afternoon. Continue to be n.p.o. He is asymptomatic. No distress. Awaiting surgery. Still having hematuria. 08/26 Patient transurethral resection of bladder mass yesterday. No hematuria in Campos bag. Patient feeling well no new complaints. Creatinine appears to be stable. Patient is on oxygen, not sure why> will need further work-up if patient does not tolerate room air. Review of Systems: denies headache/fever/chills/nausea/vomiting/chest or abdominal pain/cough/dyspnea/diarrhea. Otherwise see above. Constitutional Vitals: Vital Signs Temp Pulse Resp BP Pulse Ox 97.8 F 61 17 140/63 100 08/26/21 06:58 08/26/21 06:58 08/26/21 06:58 08/26/21 06:58 08/26/21 06:58 Period Temp Pulse Resp BP Sys/Jackson Pulse Ox Last 24 Hr 97.1 F-98.0 F 56-79 8-20 74-155/42-102 90-100 Intake and Output 08/25/21 08/26/21 08/26/21 21:59 05:59 13:59 Intake Total 2325 660 Output Total 1 950 Balance 2324 -290 Weight 79.01 kg Intake & Output: Intake & Output 08/25/21 08/26/21 08/26/21 21:59 05:59 13:59 Intake Total 2325 660 Output Total 1 950 Balance 2324 -290 Weight 79.01 kg Intake: IV 100 180 Sodium Chloride 0.9% 250 ml @ 180 20 mls/hr IV .[id number] [facility] Rx#: [id number] Oral 480 Blood Product 325 IV - Manual Only 1900 Output: Urine Catheter Amount 950 # of times incontinent of urine 1 Other: Urine Appearance Clear Clear Small Blood Clots Hematuria Uretheral (Campos) Hematuria Urine Color Blood Tinged [place] Uretheral (Campos) [place] Urine Odor Normal Exam: General: Alert, Awake, No acute Distress Eyes/N/T: EOMI, Head/Neck: neck supple, CV: RRR, No murmurs, Pulm: Clear b/l, no wheezing/rhonchi/rales Abd: soft, nontender, +BS x4 Ext: no clubbing/cyanosis/edema Neuro: Alert, no focal deficits, moves all extremities, Skin: warm/dry OBJ DATA Labs CBC & Chem 7: 08/26/21 05:47 08/26/21 05:47 Labs: Abnormal Lab Results 08/26/21 08/25/21 08/25/21 05:47 17:32 05:43 RBC 3.80 L 3.57 L Hgb 10.8 L 10.2 L Hct 33.3 L 32.0 L MCHC MPV Lymph % (Auto) 11.4 L Lymph # (Auto) 0.92 L BUN 26 H Creatinine 1.4 H Glucose 111 H Hemoglobin A1c 6.1 H Alkaline Phosphatase 08/25/21 08/24/21 08/24/21 05:43 14:35 14:35 RBC 3.01 L 2.92 L Hgb 8.5 L 8.2 L Hct 27.0 L 26.8 L MCHC 30.6 L MPV 10.5 H Lymph % (Auto) Lymph # (Auto) 1.26 L 0.82 L BUN 28 H Creatinine 1.5 H Glucose 114 H Hemoglobin A1c Alkaline Phosphatase 168 H Meds: Medications Acetaminophen (Acetaminophen 325 Mg Tablet) 650 mg PO Q6HP PRN; Protocol PRN Reason: Per Pain Protocol/Fever > 101 Hydrocodone Bitart/Acetaminophen (Hydrocodone/Apap 5/325mg Tablet) 1 tab PO Q4HP PRN; Protocol PRN Reason: Per Pain Protocol Last Admin: 08/25/21 22:03 Dose: 1 tab Documented by: Ascorbic Acid (Ascorbic Acid 500 Mg Tablet) 500 mg PO DAILY [facility] Last Admin: 08/25/21 09:01 Dose: Not Given Documented by: Atorvastatin Calcium (Atorvastatin 40 Mg Tablet) 40 mg PO DAILY [facility] Last Admin: 08/25/21 09:13 Dose: Not Given Documented by: Brimonidine Tartrate (Brimonidine Ophth Drops 1 Gtt Bottle 5ml) 1 gtt OU BID [facility] Last Admin: 08/25/21 21:18 Dose: 1 gtt Documented by: Ceftriaxone Sodium (Ceftriaxone 1 Gm Vial) 1 gm IV DAILY [facility] Last Admin: 08/25/21 09:09 Dose: 1 gm Documented by: Cyanocobalamin (Cyanocobalamin (Vitamin B-12) 500 Mcg Tablet) 1,000 mcg PO DAILY [facility] Last Admin: 08/25/21 09:01 Dose: Not Given Documented by: Diagnostic Test (Pha) (Accu-Chek 1 Each Strip) 1 each FS ACHS [facility] Last Admin: 08/25/21 21:02 Dose: 1 each Documented by: Docusate Sodium (Docusate Sodium 100 Mg Capsule) 100 mg PO BID [facility] Last Admin: 08/25/21 21:19 Dose: 100 mg Documented by: Fish Oil (Fish Oil 1,000 Mg Capsule) 1,000 mg PO DAILY [facility] Last Admin: 08/25/21 09:01 Dose: Not Given Documented by: Gabapentin (Gabapentin 300 Mg Capsule) 300 mg PO QHS [facility] Last Admin: 08/25/21 21:18 Dose: 300 mg Documented by: Heparin Sodium (Porcine) (Heparin 5,000 Unit/Ml Vial) 5,000 unit SQ Q12 [facility] Iron Carb/Multivit/Rn Clinical Appeals/Folic Acid (Multivit,Ther Iron,Ca,Fa & Min 1 Tablet) 1 tab PO DAILY [facility] Last Admin: 08/25/21 09:01 Dose: Not Given Documented by: Latanoprost (Latanoprost Ophth Drops 2.5ml Bottle) 1 gtt OU HS [facility] Last Admin: 08/25/21 21:18 Dose: 1 gtt Documented by: Levothyroxine Sodium (Levothyroxine 75 Mcg Tablet) 75 mcg PO ACB [facility] Last Admin: 08/25/21 07:30 Dose: 75 mcg Documented by: Ondansetron HCl (Ondansetron 4 Mg/2 Ml Vial) 4 mg IV Q6HP PRN PRN Reason: Nausea And Vomiting Dorzolamide-Timolol (Pf) 2-0.5 % Dropperette 1 dose OU BID [facility] Last Admin: 08/25/21 21:18 Dose: 1 dose Documented by: Senna (Sennosides 1 Tablet) 2 tab PO HS [facility] Last Admin: 08/25/21 21:18 Dose: 2 tab Documented by: Sodium Chloride (0.9 % Sodium Chloride 10 Ml Syringe) 10 ml IV Q8 [facility] Last Admin: 08/26/21 06:02 Dose: 10 ml Documented by: Sodium Chloride (0.9 % Sodium Chloride 10 Ml Syringe) 10 ml IV Q8 [facility] Last Admin: 08/26/21 06:05 Dose: 10 ml Documented by: Tamsulosin HCl (Tamsulosin 0.4 Mg Capsule) 0.4 mg PO QHS [facility] Last Admin: 08/25/21 21:19 Dose: 0.4 mg Documented by: Vitamin D (Vitamin D3 25 Mcg Tablet) 50 mcg PO DAILY [facility] Last Admin: 08/25/21 09:01 Dose: Not Given Documented by: A/P Narrative A/P Narrative: A/P: #Acute blood loss anemia 2/2 hematuria after cystoscopy for bladder mass: -Recently treated Enterococcus UTI (sensitive to nitrofurantoin) -Considering his significant orthostatic symptoms, he was admitted for blood transfusion. -2 unit of RBC given 08/25. This should help with perioperative blood loss during surgery. #6cm sessile mass arising from posterior urinary bladder wall suspicious for transitional cell carcinoma: -No evidence of metastatic adenopathy -Urology attempted cystoscopy in the clinic but it was difficult due to poor visualization from hematuria. -s/p Transurethral resection of large bladder tumor (08/25), f/u with Urology outpt #CKD III: #HTN: On losartan/hydrochlorothiazide/amlodipine #DM 2: on Metformin 1000 mg twice daily and glipizide. Hold both -SSI #Hypothyroidism: on levothyroxine 25 mcg daily #ppx: SCD (heparin if hematuria resolves) Time Spent With Patient Time: Total time spent is greater than 50% in coordination of care (as documented) at patient's floor/unit and/or counseling patient:
[2021-08-26] MEDS ORDERED: hydrALAZINE 20 MG/ML VIAL IV PRN (07:31)
[2021-08-26] MEDS: FISH OIL 1,000 MG CAPSULE PO SCH (08:36)
[2021-08-26] MEDS: MULTIVIT,THER IRON,CA,FA & MIN 1 TABLET PO SCH (08:36)
[2021-08-26] MEDS: ASCORBIC ACID 500 MG TABLET PO SCH (08:36)
[2021-08-26] MEDS: CYANOCOBALAMIN (VITAMIN B-12) 500 MCG TABLET PO SCH (08:36)
[2021-08-26] MEDS: LEVOTHYROXINE 75 MCG TABLET PO SCH (08:36)
[2021-08-26] MEDS: ATORVASTATIN 40 MG TABLET PO SCH (08:36)
[2021-08-26] MEDS: DOCUSATE SODIUM 100 MG CAPSULE PO SCH (08:36)
[2021-08-26] MEDS: VITAMIN D3 25 MCG TABLET PO SCH (08:36)
[2021-08-26] MEDS: DORZOLAMIDE TIMOLOL OU SCH (08:36)
[2021-08-26] MEDS: BRIMONIDINE OPHTH DROPS 1 GTT BOTTLE 5ML OU SCH (08:37)
[2021-08-26] MEDS ORDERED: HEPARIN 5,000 UNIT/ML VIAL SQ SCH (09:00)
[2021-08-26] MEDS ORDERED: amLODIPine 5 MG TABLET PO SCH (09:00)
[2021-08-26] MEDS: cefTRIAXone 1 GM VIAL IV SCH (10:14)
--- NOTE | 2021-08-26 11:11 | Discharge Summary ---
Discharge Provider Provider Patient information: Note initiated : 08/26/21 at 11:09 am Service Date, if different from initiated Date: [] Patient: Gavin Bowen 86 y/o M admitted on 08/24/21 for "im here for blood". Chief Complaint: [] Date of admission: 08/24/21 17:19 Discharge date: 08/26/21 Primary care physician: Frank Herrmann DO Consults: 08/24/21 Consult to Physician [CONS] Stat Comment: Consulting Provider: Sherin Muse Reason For Exam: Physician to Consult Discharge Meds Discharge Medications Home Medications latanoprost 0.005 % eye drops 1 drp OPHTHALMIC QPM 10/30/19 [History Confirmed 08/24/21 Last Taken Unknown] ascorbic acid (vitamin C) 500 mg capsule 500 mg PO QDAY cap 02/10/20 [History Confirmed 08/24/21 Last Taken Unknown] aspirin 81 mg chewable tablet 81 mg PO QDAY tab 02/10/20 [History Confirmed 08/24/21 Last Taken Unknown] cholecalciferol (vitamin D3) 50 mcg (2,000 unit) capsule 2,000 unit PO QDAY cap 02/10/20 [History Confirmed 08/24/21 Last Taken Unknown] dorzolamide-timolol (PF) 2 %-0.5 % eye drops in a dropperette 1 drp OPHTHALMIC BID each 02/10/20 [History Confirmed 08/24/21 Last Taken Unknown] inulin 2 gram chewable tablet (Fiber Gummies) 2 g PO QDAY tab 02/10/20 [History Confirmed 08/24/21 Last Taken Unknown] mecobalamin (vitamin B12) 1,000 mcg disintegrating tablet,sublingual 1,000 mcg SUBLINGUAL QDAY tab 02/10/20 [History Confirmed 08/24/21 Last Taken Unknown] omega 2-yhv-ymf-fish oil 1,000 mg (120 mg-180 mg) capsule 1 cap PO QDAY cap 02/10/20 [History Confirmed 08/24/21 Last Taken Unknown] brimonidine 0.2 % eye drops 1 drp OPHTHALMIC (EYE) BID ml 08/16/20 [History Confirmed 08/24/21 Last Taken Unknown] metformin 500 mg tablet 1,000 mg PO BID #360 tab 09/06/20 [Rx Confirmed 08/24/21 Last Taken Unknown] atorvastatin 40 mg tablet 40 mg PO DAILY #90 tab 09/20/20 [Rx Confirmed 08/24/21 Last Taken Unknown] glipizide 5 mg tablet 5 mg PO QDAY #90 tab 02/01/21 [Rx Confirmed 08/24/21 Last Taken Unknown] amlodipine 5 mg tablet 5 mg PO BID #180 tab 03/07/21 [Rx Confirmed 08/24/21 Last Taken Unknown] levothyroxine 75 mcg tablet 75 mcg PO DAILY #90 tab 04/18/21 [Rx Confirmed 08/24/21 Last Taken Unknown] gabapentin 300 mg capsule 300 mg PO QHS #90 cap 05/30/21 [Rx Confirmed 08/24/21 Last Taken Unknown] losartan 100 mg-hydrochlorothiazide 25 mg tablet 1 tab PO QDAY #90 tab 07/11/21 [Rx Confirmed 08/24/21 Last Taken Unknown] blood sugar diagnostic #100 each 07/25/21 [Rx Confirmed 08/24/21 Last Taken Unknown] tamsulosin 0.4 mg capsule 0.4 mg PO QHS #30 cap 08/16/21 [Rx Confirmed 08/24/21 Last Taken Unknown] nitrofurantoin monohydrate/macrocrystals 100 mg capsule 100 mg PO BID 10 Days #20 cap 08/22/21 [Rx Confirmed 08/24/21 Last Taken Unknown] cyanocobalamin (vitamin B-12) 1,000 mcg tablet 1,000 mcg PO QDAY 08/24/21 [History Confirmed 08/24/21 Last Taken Unknown] hydrochlorothiazide 50 mg tablet 50 mg PO QDAY 08/24/21 [History Confirmed 08/24/21 Last Taken Unknown] multivitamin 1 tab PO QDAY 08/24/21 [History Confirmed 08/24/21 Last Taken Unknown] COURSE Hospital Course Hospital course: Interval history: Mr. Bowen is a 86 year old M with history of intermittent gross hematuria, obstructive urinary symptoms, diabetes mellitus, hypothyroidism, glaucoma, carpal tunnel syndrome ,multiple back surgeries, type 2 diabetes mellitus is being admitted from the urology office for blood transfusion and TURBT surgery tomorrow Patient has been having some orthostatic symptoms of late. Says he feels lightheaded and dizzy only on standing up "I have to stand up real slow and carefully" Vital signs stable in ER. Hemoglobin 8.2 on admission. Transferred 1 unit of PRBC by ER, In anticipation of blood loss tomorrow during surgery. 08/25-Dr. Mehta planning on surgery this afternoon. Continue to be n.p.o. He is asymptomatic. No distress. Awaiting surgery. Still having hematuria. 08/26 Patient transurethral resection of bladder mass yesterday. No hematuria in Campos bag. Patient feeling well no new complaints. Creatinine appears to be stable. Patient is on oxygen, not sure why> will need further work-up if patient does not tolerate room air. Patient taken off supplemental oxygen and is maintaining sats in the mid 90s. May need a sleep study at home. A/P: #Acute blood loss anemia 2/2 hematuria after cystoscopy for bladder mass: #6cm sessile mass arising from posterior urinary bladder wall suspicious for transitional cell carcinoma: -s/p Transurethral resection of large bladder tumor (08/25), f/u with Urology outpt and for pathology #CKD III: #HTN: On losartan/hydrochlorothiazide/amlodipine #DM 2: on Metformin 1000 mg twice daily and glipizide. Hold both #Hypothyroidism: on levothyroxine 25 mcg daily Discharge diagnosis: Acute blood loss and anemia from gross hematuria bladder mass Secondary discharge diagnosis: New bladder mass status post resection kidney disease hypertension diabetes hypothyroidism possible RONIT Time Spent with Patient Time attestation: Total time spent providing and/or coordinating discharge services: Time spent: Greater than 30 minutes EXAM Constitutional Vitals: Temp Pulse Resp BP Pulse Ox 97.8 F 61 17 140/63 94 08/26/21 06:58 08/26/21 06:58 08/26/21 06:58 08/26/21 06:58 08/26/21 09:11 Discharge Data Data Completed and Pending Labs on day of discharge: Labs from last 24 hours 08/26/21 08/26/21 08/25/21 05:47 05:47 17:32 WBC 7.2 8.0 RBC 3.80 L 3.57 L Hgb 10.8 L 10.2 L Hct 33.3 L 32.0 L MCV 87.6 89.6 MCH 28.4 28.6 MCHC 32.4 31.9 RDW 13.8 13.7 Plt Count 259 211 MPV 10.3 10.0 Neut % (Auto) 77.3 Lymph % (Auto) 11.4 L [place] % (Auto) 5.3 Eos % (Auto) 5.5 Baso % (Auto) 0.5 Lymph # (Auto) 0.92 L [place] # (Auto) 0.43 Eos # (Auto) 0.44 Baso # (Auto) 0.04 Absolute Neutrophils 6.21 Sodium 136 Potassium 4.8 Chloride 101 Carbon Dioxide 24 Anion Gap 11.0 BUN 25 H Creatinine 1.3 H GFR Calculation 49 Glucose 207 H Uric Acid 7.2 Calcium 9.0 Phosphorus 4.1 Magnesium 2.2 Total Bilirubin 0.4 Direct Bilirubin < 0.2 GGT 9 AST 16 ALT 11 Alkaline Phosphatase 128 H Lactate Dehydrogenase 173 Total Protein 6.5 Albumin 3.9 Globulin 2.6 Albumin/Globulin Ratio 1.5 Triglycerides 104 Discharge Plan Patient/Caregiver Discharge Instructions Instructions: Campos Catheter Placement and Care (DC), Urinary Leg Bag (GEN), Transurethral Resection of Bladder Tumors (DC) Activity Restrictions/Additional Instructions: Follow-up with PCP for possible sleep study order Prescriptions: Continued latanoprost 0.005 % drops 1 drp OPHTHALMIC QPM 0RF Fiber Gummies 2 gram tablet,chewable 2 g PO QDAY 0RF ascorbic acid (vitamin C) 500 mg capsule 500 mg capsule 500 mg PO QDAY 0RF metformin 500 mg tablet 1,000 mg PO BID Qty: 360 3RF atorvastatin 40 mg tablet 40 mg PO DAILY Qty: 90 1RF glipizide 5 mg tablet 5 mg PO QDAY Qty: 90 3RF amlodipine 5 mg tablet 5 mg PO BID Qty: 180 1RF levothyroxine 75 mcg tablet 75 mcg PO DAILY Qty: 90 1RF gabapentin 300 mg capsule 300 mg PO QHS Qty: 90 1RF losartan-hydrochlorothiazide 100-25 mg tablet 1 tab PO QDAY Qty: 90 1RF (DME) blood sugar diagnostic Strip See Rx Instructions .ROUTE .MEDSUPPLY Qty: 100 3RF Rx Instructions: use to test blood sugars once daily nitrofurantoin monohyd/m-cryst 100 mg capsule 100 mg PO BID 10 Days Qty: 20 0RF Rx Instructions: must administer with a meal/food dorzolamide-timolol (PF) 2-0.5 % dropperette 1 drp OPHTHALMIC BID 0RF mecobalamin (vitamin B12) 1,000 mcg tablet,disintegrating 1,000 mcg SUBLINGUAL QDAY 0RF brimonidine 0.2 % drops 1 drp ophthalmic (eye) BID 0RF Rx Instructions: administer approximately 8 hours apart cholecalciferol (vitamin D3) 50 mcg (2,000 unit) capsule 2,000 unit PO QDAY 0RF aspirin 81 mg tablet,chewable 81 mg PO QDAY 0RF omega 7-kmy-smy-fish oil 1,000 mg (120 mg-180 mg) capsule 1 cap PO QDAY 0RF multivitamin Tablet 1 tab PO QDAY 0RF hydrochlorothiazide 50 mg Tablet 50 mg PO QDAY 0RF cyanocobalamin (vitamin B-12) 1,000 mcg Tablet 1,000 mcg PO QDAY 0RF tamsulosin 0.4 mg capsule 0.4 mg PO QHS Qty: 30 3RF Follow Up Plan Follow up with: Frank Herrmann DO [Primary Care Provider] - Jhoan Mehta MD [Physician] - 08/31/21 8:45 am Patient Disposition: Home Health Service Prognosis: Fair Overall status at discharge: patient is progressing back to baseline Discharge Orders: Discharge Order (Routine); Ordered 08/26/21 Ordered By: Reggie Skelton
== END 2021-08-26 13:00 | disposition home health service (06) ==
LOC: ED 14:09 → MEDSUR 17:19 → INTOOBSV 17:19
PROVIDERS: ADMIT Internal Medicine Medical Oncology; ATTEND Internal Medicine Medical Oncology

== ENCOUNTER 2022-05-17 14:38 | Observation (INO) ==
[2022-05-17 15:12] LABS: POC Calcium, Ionized 1.18 (1.16-1.32); POC Creatinine 1.7 (0.6-1.2); POC Potassium 4.2 (3.3-5.1)
--- NOTE | 2022-05-17 15:16 | Emergency Department Note ---
HPI General Chief complaint: Urogenital-Male Stated complaint: trnsfusion?possible check shon raines sup Time Seen by Provider: 05/17/22 14:49 Source: patient Mode of arrival: wheelchair Limitations: no limitations History of Present Illness HPI Narrative: Narrative: Patient presents to the ED after being sent over by his urologist due to blood loss anemia. Patient has prostate cancer with hematuria. Case was discussed with Dr. Mehta, urology, who request that patient be admitted in the ED prior to admission to the hospitalist service. He stated that patient's hemoglobin was below 8. His plan is to take patient to the OR tomorrow for cystoscopy for fulguration. Patient currently denies fever, chills, nausea, vomiting, current chest pain, shortness of breath, cough, sputum production, abdominal pain. Patient denies any other alleviating or aggravating factors. Related Data Home Medications Medication Instructions Recorded Confirmed latanoprost 0.005 % eye drops 1 drp ophthalmic (eye) QPM 10/30/19 05/16/22 omega 4-bqp-agi-fish oil 1,000 mg 1 cap PO QDAY 02/10/20 05/16/22 (120 mg-180 mg) capsule brimonidine 0.2 % eye drops 1 drp ophthalmic (eye) BID 08/16/20 05/16/22 gabapentin 300 mg capsule 300 mg PO BID 02/24/22 05/16/22 losartan 100 1 tab PO QAM 02/24/22 05/16/22 mg-hydrochlorothiazide 25 mg tablet mecobalamin (vitamin B12) 1,000 1,000 mcg PO QDAY 02/24/22 05/16/22 mcg lozenges dorzolamide 22.3 mg-timolol 6.8 1 drp ophthalmic (eye) BID 04/06/22 05/16/22 mg/mL eye drops Previous Rx's Medication Instructions Recorded blood sugar diagnostic #100 ea 07/25/21 metformin 500 mg tablet 1,000 mg PO BID #360 tabs 09/20/21 glipizide 5 mg tablet 5 mg PO QDAY #90 tabs 01/23/22 levothyroxine 75 mcg tablet 75 mcg PO DAILY #90 tabs 01/23/22 Campos catheter stabilization device #1 ea 02/22/22 amlodipine 5 mg tablet 5 mg PO BID #180 tabs 04/03/22 Allergies Allergy/AdvReac Type Severity Reaction Status Date / Time ciprofloxacin [From Cipro] AdvReac Intermediate Unknown Verified 05/16/22 14:06 Review of Systems ROS ROS Narrative: Narrative: All systems ED: reviewed and negative except as stated. [facility] Narrative Patient History Narrative: Narrative: Medical/Surgical/Family History All Active Problems (Updated 05/17/22 @ 15:16 by Eyal Zuniga DO) Acquired hypothyroidism (Chronic) Essential hypertension (Chronic) Nausea & vomiting (Chronic) Dehydration (Chronic) Hypothyroidism, unspecified (Chronic) Spinal stenosis, lumbar region with neurogenic claudication (Chronic) Low back pain (Chronic) Radiculopathy, lumbar region (Chronic) Chronic pain (Chronic) Unspecified glaucoma (Chronic) Hypercholesterolemia (Chronic) History of surgery (Chronic) Hip pain, left (Chronic) 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) Radiculopathy, lumbosacral region (Acute) CTS (carpal tunnel syndrome) (Acute) Gross hematuria (Acute) BPH loc w urin obs/LUTS (Chronic) Renal failure (Acute) Ureteral stone (Acute) Bladder mass (Acute) Anemia (Acute) Complication of Campos catheter (Acute) 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) High risk medication use (Acute) Ulnar tunnel syndrome (Acute) Urinary retention (Chronic) Dizziness (Acute) Peripheral neuropathy (Acute) Decubitus ulcer of buttock, stage 1 (Acute) Hematuria (Acute) Abrasion forearm (Acute) Fall (Acute) Lower extremity edema (Acute) Iron deficiency anemia (Acute) Fatigue (Acute) Actinic keratoses (Acute) Dry skin (Acute) ABLA (acute blood loss anemia) (Acute) Hematuria (Acute) Medical History Abrasion forearm Acquired hypothyroidism Actinic keratoses Chronic pain Decubitus ulcer of buttock, stage 1 Dizziness Dry skin Essential hypertension Fall Fatigue Fever High risk medication use Hypercholesterolemia Hypothyroidism, unspecified Iron deficiency anemia Low back pain Lower extremity edema Medicare annual wellness visit, subsequent Nausea Peripheral neuropathy Radiculopathy, lumbar region Radiculopathy, lumbosacral region Spinal stenosis, lumbar region with neurogenic claudication Ulnar tunnel syndrome Unspecified glaucoma Surgical History History of surgery TF NAKUL #2 Lt. L5-S1 w/o sed 11/24/2019 TF NAKUL #1 Lt. L5-S1 w/sed 07/08/2019 LESI #3 L4-5 w/o sed 10/24/2018 LESI #2 L4-5 w/o sed 09/16/18 LESI #1 L4-5 w/o sed 08/21/2018 Family History Other Cancer Hypertension No pertinent family history Social History Smoking Status: Former smoker Alcohol Intake Frequency: does not drink Exam Narrative Narrative: Narrative: General Limitations: no limitations General appearance: Absent in distress Respiratory Respiratory: Present normal lung sounds bilaterally; Absent respiratory distress Cardiovascular Cardiovascular: Present regular rate and normal rhythm Adbominal Abdominal: Present soft; Absent tenderness : Present other (Campos catheter in place) Extremities Extremities: Present normal capillary refill Back Back: Absent CVA tenderness (R) or CVA tenderness (L) Neurological Neurological: Present alert and oriented X3 Psychiatric Psychiatric: Present normal affect and normal mood Skin Skin: Present warm (WNL) and intact Course Course Course Narrative: Patient was evaluated for acute loss anemia secondary to hematuria. Patient was typed and crossed and 2 units of packed red blood cells have been ordered. Labs show that patient's hemoglobin less than 8. Other labs are unremarkable. Case discussed with hospitalist who has agreed to admit the patient. Consultations Consultation #1: Case discussed with hospitalist who has agreed to admit the patient. Time: 15:40 Vital Signs Vital signs: Vital Signs Temperature 96.5 F L 05/17/22 14:40 Pulse Rate 75 05/17/22 14:40 Respiratory Rate 16 05/17/22 14:40 Blood Pressure 117/60 05/17/22 14:40 Pulse Oximetry (%) 99 05/17/22 14:40 Oxygen Delivery Method 05/17/22 14:40 Temperature 96.5 F L 05/17/22 14:40 Pulse Rate 75 05/17/22 14:40 Respiratory Rate 16 05/17/22 14:40 Blood Pressure 117/60 05/17/22 14:40 Pulse Oximetry (%) 99 05/17/22 14:40 Oxygen Delivery Method 05/17/22 14:40 [facility] Narrative Medical decision making narrative: Narrative: Differential Diagnosis Differential Diagnosis: Acute blood loss anemia, hematuria Medical Records Medical records reviewed: Yes I reviewed the patient's medical records. Lab Data Lab results reviewed: Yes I reviewed the patient's lab results. Result diagrams: 05/17/22 15:01 Labs: Lab Results 05/17/22 Range/Units 15:07 POC Hct 25.0 L (41-55) POC Sodium 140 (133-145) POC Potassium 4.2 (3.3-5.1) POC Chloride 101 (96-108) POC Total CO2 28.0 (22-30) POC BUN 32 H (6-20) POC Creatinine 1.7 H (0.6-1.2) POC Glucose 131 H (70-105) POC WB Ioniz Calcium 1.18 (1.16-1.32) Core Measures AMI Core Measures Followed: Yes Discharge Plan Patient/Caregiver Discharge Instructions Pt seen by [employer]/PA only: No Clinical Impression: ABLA (acute blood loss anemia) Hematuria Qualifiers: Hematuria type: gross Qualified Code(s): R31.0 - Gross hematuria Patient Disposition: Xfer As Outpt/Obs ([facility]) Condition: Fair Follow up with: Beck Casper MD [Primary Care Provider] - Prescriptions: No Action latanoprost 0.005 % drops 1 drp OPHTHALMIC QPM (DME) blood sugar diagnostic Strip See Rx Instructions .ROUTE .MEDSUPPLY Qty: 100 3RF Rx Instructions: use to test blood sugars once daily metformin 500 mg tablet 1,000 mg PO BID Qty: 360 2RF levothyroxine 75 mcg tablet 75 mcg PO DAILY Qty: 90 1RF glipizide 5 mg tablet 5 mg PO QDAY Qty: 90 3RF amlodipine 5 mg tablet 5 mg PO BID Qty: 180 1RF brimonidine 0.2 % drops 1 drp ophthalmic (eye) BID Rx Instructions: administer approximately 8 hours apart (DME) Campos catheter stabilization device See Rx Instructions .Route .MEDSUPPLY Qty: 1 6RF Rx Instructions: As directed omega 7-yxp-ghf-fish oil 1,000 mg (120 mg-180 mg) capsule 1 cap PO QDAY mecobalamin (vitamin B12) 1,000 mcg Lozenge 1,000 mcg PO QDAY Rx Instructions: allow to dissolve in mouth OR may chew lightly before swallowing losartan-hydrochlorothiazide 100-25 mg tablet 1 tab PO QAM gabapentin 300 mg capsule 300 mg PO BID dorzolamide-timolol 22.3-6.8 mg/mL drops 1 drp ophthalmic (eye) BID
[2022-05-17 15:48] LABS: Basophils # (Auto) 0.04 K/mcL (0.00-0.30); Basophils % (Auto) 0.5 % (0.0-2.0); Eosinophils # (Auto) 0.74 K/mcL (0.00-0.70); Eosinophils % (Auto) 8.5 % (0.0-7.0); Hematocrit 24.8 % (40.1-51.0); Hemoglobin 7.7 g/dL (13.7-17.5); Lymphocytes # (Auto) 1.01 K/mcL (1.50-4.80); Lymphocytes % (Auto) 11.5 % (15.5-49.0); Mean Cell Volume 95.4 fL (80.0-100.0); Mean Platelet Volume 10.2 fL (8.8-12.5); Neutrophils % (Auto) 71.2 % (38.0-78.0); Platelet Count 339 K/mcL (140-440); Red Cell Distribution Width 13.2 % (11.5-14.5); WBC 8.8 K/mcL (4.5-11.0)
--- OUTSIDE RECORDS SUMMARY | 2022-05-17 16:55 | External Medical Summary ---
:1935 Author Care Team Providers Name Role Phone Nghia Stroud Primary Care Provider Unavailable Allergies None recorded. Medications Name Status Start Date Stop Date amlodipine 5 mg tablet Active Not avail able TAKE 1 TABLET BY MOUTH TWICE DAILY brimonidine 0.2 % eye drops Active Not available INSTILL 1 DROP INTO EACH EYE TWICE DAILY ciprofloxacin 500 mg tablet Active Not available dorzolamide 22.3 mg-timolol 6.8 mg/mL eye drops Active Not available INSTILL 1 DROP INTO EACH EYE TWICE DAILY DIRECTED Euthyrox 75 mcg tablet Active Not avail able TAKE 1 TABLET BY MOUTH ONCE DAILY fluorouracil 5 % topical cream Active N ot available APPLY CREAM TOPICALLY TO AFFECTED AREA TWICE DAILY WASH OFF AT BEDTIME. USE FOR 2 WEEKS. AVOID EYES. gabapentin 300 mg capsule Active Not av ailable TAKE 1 CAPSULE BY MOUTH TWICE DAILY glipizide 5 mg tablet Active Not availa ble TAKE 1 TABLET BY MOUTH ONCE DAILY latanoprost 0.005 % eye drops Active No t available losartan 100 mg-hydrochlorothiazide 25 mg tablet Active Not available TAKE 1 TABLET BY MOUTH ONCE DAILY metformin 500 mg tablet Active Not avai lable TAKE 2 TABLETS BY MOUTH TWICE DAILY nitrofurantoin monohydrate/macrocrystals 100 mg capsule Active Not available TAKE 1 CAPSULE BY MOUTH TWICE DAILY FOR 10 DAYS OneTouch Ultra Test strips Active Not a vailable USE 1 STRIP TO CHECK GLUCOSE ONCE DAILY phenazopyridine 200 mg tablet Active No t available TAKE 1 TABLET BY MOUTH THREE TIMES LINDA Y NEEDED FOR PAIN OR BURNING ON URINATION prochlorperazine maleate 10 mg tablet Active Not available TAKE 1 TABLET BY MOUTH EVERY 6 HOURS NEEDED FOR NAUSEA sulfamethoxazole 800 mg-trimethoprim 160 mg tablet Active Not available TAKE 1 TABLET BY MOUTH TWICE DAILY tamsulosin 0.4 mg capsule Active Not av ailable TAKE 1 CAPSULE BY MOUTH ONCE DAILY AT BEDTIME Problems None recorded. Procedures None recorded. Results Lab Results None recorded. Past Encounters Encounter Date Diagnosis Provider 02/07/2022 Idiopathic Peripheral Neuropathy Nghia christensen MD: [id number] [facility] [id number], Ph. Social History None recorded. Vaccine List None recorded. Plan of Care Reminders Provider Appointments None recorded. Lab None recorded. Referral None recorded. Procedures None recorded. Surgeries None recorded. Imaging None recorded. Vitals None recorded.
[2022-05-17] MEDS ORDERED: 0.9 % SODIUM CHLORIDE 1,000 ML IV SCH ×2 (17:00→18:19)
[2022-05-17] MEDS ORDERED: HYDROcodone/APAP 5/325MG TABLET PO PRN (18:04)
[2022-05-17] MEDS ORDERED: ACETAMINOPHEN 325 MG TABLET PO PRN (18:04)
[2022-05-17] MEDS ORDERED: ONDANSETRON 4 MG/2 ML VIAL IV PRN (18:04)
[2022-05-17] MEDS ORDERED: ONDANSETRON 4 MG ODT TABLET SL PRN (18:10)
[2022-05-17] MEDS ORDERED: cefTRIAXone 1 GM in DEXTROSE 5% IN WATER 50 ML IV SCH (18:15)
--- NOTE | 2022-05-17 18:40 | Internal Med History&Physical ---
HPI History of Present Illness Patient information: Note initiated : 05/17/22 at 6:20 pm Service Date, if different from initiated Date: Patient: Gavin Bowen 87 y/o M admitted on for Hematuria and blood loss anemia. Chief Complaint: Worsening Hematuria, History of present illness: Mr. Bowen is a 87 year old pleasant male with past medical history significant for invasive residual high-grade papillary urothelial carcinoma followed by urologist Dr. Mehta sent to emergency room from urology clinic with worsening hematuria and acute on chronic blood loss Anemia. Patient had Campos catheter for the past 2 weeks. He had follow-up appointment with Dr. Mehta which noticed worsening hematuria. Patient advised to get admitted to hospital for cystoscopy in the morning. Patient denies chest pain shortness of breath nausea vomiting orthopnea PND. Review of Systems All systems: reviewed and no additional remarkable complaints except as stated Review of systems: Except as documented all systems reviewed and negative PFSH PFSH All Active Problems Acquired hypothyroidism (Chronic) Essential hypertension (Chronic) Nausea & vomiting (Chronic) Dehydration (Chronic) Hypothyroidism, unspecified (Chronic) Spinal stenosis, lumbar region with neurogenic claudication (Chronic) Low back pain (Chronic) Radiculopathy, lumbar region (Chronic) Chronic pain (Chronic) Unspecified glaucoma (Chronic) Hypercholesterolemia (Chronic) History of surgery (Chronic) Hip pain, left (Chronic) 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) Radiculopathy, lumbosacral region (Acute) CTS (carpal tunnel syndrome) (Acute) Gross hematuria (Acute) BPH loc w urin obs/LUTS (Chronic) Renal failure (Acute) Ureteral stone (Acute) Bladder mass (Acute) Anemia (Acute) Complication of Campos catheter (Acute) 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) High risk medication use (Acute) Ulnar tunnel syndrome (Acute) Urinary retention (Chronic) Dizziness (Acute) Peripheral neuropathy (Acute) Decubitus ulcer of buttock, stage 1 (Acute) Hematuria (Acute) Abrasion forearm (Acute) Fall (Acute) Lower extremity edema (Acute) Iron deficiency anemia (Acute) Fatigue (Acute) Actinic keratoses (Acute) Dry skin (Acute) ABLA (acute blood loss anemia) (Acute) Hematuria (Acute) Medical History Abrasion forearm Acquired hypothyroidism Actinic keratoses Chronic pain Decubitus ulcer of buttock, stage 1 Dizziness Dry skin Essential hypertension Fall Fatigue Fever High risk medication use Hypercholesterolemia Hypothyroidism, unspecified Iron deficiency anemia Low back pain Lower extremity edema Medicare annual wellness visit, subsequent Nausea Peripheral neuropathy Radiculopathy, lumbar region Radiculopathy, lumbosacral region Spinal stenosis, lumbar region with neurogenic claudication Ulnar tunnel syndrome Unspecified glaucoma Surgical History History of surgery TF NAKUL #2 Lt. L5-S1 w/o sed 11/24/2019 TF NAKUL #1 Lt. L5-S1 w/sed 07/08/2019 LESI #3 L4-5 w/o sed 10/24/2018 LESI #2 L4-5 w/o sed 09/16/18 LESI #1 L4-5 w/o sed 08/21/2018 Family History Other Cancer Hypertension No pertinent family history Social History smoking status: Former smoker quit date: 05/28/69 alcohol intake frequency: does not drink MEDS/ALLERGIES Home Medications and Allergies Home Medications Medication Instructions Recorded Confirmed Type latanoprost 0.005 % eye drops 1 drp ophthalmic (eye) QPM 10/30/19 05/16/22 History omega 7-efa-jka-fish oil 1,000 mg 1 cap PO QDAY 02/10/20 05/16/22 History (120 mg-180 mg) capsule brimonidine 0.2 % eye drops 1 drp ophthalmic (eye) BID 08/16/20 05/16/22 History blood sugar diagnostic #100 ea 07/25/21 05/16/22 Rx metformin 500 mg tablet 1,000 mg PO BID #360 tabs 09/20/21 05/16/22 Rx glipizide 5 mg tablet 5 mg PO QDAY #90 tabs 01/23/22 05/16/22 Rx levothyroxine 75 mcg tablet 75 mcg PO DAILY #90 tabs 01/23/22 05/16/22 Rx Campos catheter stabilization device #1 ea 02/22/22 05/16/22 Rx gabapentin 300 mg capsule 300 mg PO BID 02/24/22 05/16/22 History losartan 100 1 tab PO QAM 02/24/22 05/16/22 History mg-hydrochlorothiazide 25 mg tablet mecobalamin (vitamin B12) 1,000 1,000 mcg PO QDAY 02/24/22 05/16/22 History mcg lozenges amlodipine 5 mg tablet 5 mg PO BID #180 tabs 04/03/22 05/16/22 Rx dorzolamide 22.3 mg-timolol 6.8 1 drp ophthalmic (eye) BID 04/06/22 05/16/22 History mg/mL eye drops Allergies Allergy/AdvReac Type Severity Reaction Status Date / Time ciprofloxacin [From Cipro] AdvReac Intermediate Unknown Verified 05/16/22 14:06 EXAM Constitutional Vitals: Temp Pulse Resp BP Pulse Ox O2 Del Method 96.5 F L 70 20 143/57 96 05/17/22 14:40 05/17/22 18:12 05/17/22 17:46 05/17/22 17:46 05/17/22 18:12 05/17/22 14:40 Exam: General: Pleasant elderly male, thin, awake alert oriented x3. No apparent distress HEENT: PERRLA, moist mucous membrane. Anicteric sclera Chest: No point tenderness. Lungs: Clear to auscultation bilaterally. No crackles rhonchi or rales. Cardiovascular: Regular rate and rhythm. S1 + S2, no murmur gallop rub. No peripheral edema. No JVD GI: Abdomen soft, nontender, positive bowel sounds. No hepatosplenomegaly. No rebound tenderness. No CVA tenderness : Campos catheter in place with bloody urine. No suprapubic pubic tenderness. FORM RAISER: Awake alert oriented x3. Cranial nerves II through XII 12 grossly intact. Skin: Very dry. Psychiatric: Normal mood and affect DATA Data Completed and Pending Labs: Labs from last 24 hours 05/17/22 05/17/22 15:07 15:01 WBC 8.8 RBC 2.60 L Hgb 7.7 L Hct 24.8 L POC Hct 25.0 L MCV 95.4 MCH 29.6 MCHC 31.0 RDW 13.2 Plt Count 339 MPV 10.2 Immature Gran % (Auto) 0.3 Neut % (Auto) 71.2 Lymph % (Auto) 11.5 L [place] % (Auto) 8.0 Eos % (Auto) 8.5 H Baso % (Auto) 0.5 Lymph # (Auto) 1.01 L [place] # (Auto) 0.70 Eos # (Auto) 0.74 H Baso # (Auto) 0.04 Immature Gran # 0.03 Absolute Neutrophils 6.23 POC Sodium 140 POC Potassium 4.2 POC Chloride 101 POC Total CO2 28.0 POC BUN 32 H POC Creatinine 1.7 H POC Glucose 131 H POC WB Ioniz Calcium 1.18 Additional Comments Additional comments: EKG interpreted by myself. Normal sinus rhythm. Left bundle branch block which is not new. No acute finding. Nonischemic A/P Sepsis Sepsis Identified: No Narrative A/P Narrative: Mr. Bowen is a 87 year old pleasant male with past medical history significant for invasive residual high-grade papillary urothelial carcinoma followed by urologist Dr. Mehta sent to emergency room from urology clinic with worsening hematuria and acute on chronic blood loss: #Acute on chronic blood loss anemia due to hematuria -Hemoglobin 7.7 g/DL. -Transfused 2 unit packed RBC since patient is going to the OR tomorrow for further cystoscopy and procedure #Worsening hematuria due to invasive high-grade papillary bladder cancer # Invasive residual high-grade papillary urothelial carcinoma - S/p resection by 02/28/22 - Going to OR tomorrow for further evaluation under [place] - Continue to follow up as outpatient with oncologist and Dr. Mehta -N.p.o. after midnight. # Pre Op Risk stratification - Rivised cardiac risk index is 0 points, Class I Risk, 3.9 % 30-day risk of , SD, or cardiac arrest - EKG shows LBBB which is old. (No A.fib). No evidence of ACS, decompensated CHF, stroke. -I recommend to proceed with surgery with no further testing at this time #Glaucoma. Continue home eyedrops #CKD III: Follow BMP #HTN: Cont home Losartan/hydrochlorothiazide/amlodipine. #DM 2: on Metformin 1000 mg twice daily and glipizide. Hold both for now and Do SSI #Hypothyroidism: Cont home levothyroxine 25 mcg daily DVT PPX: Chemical prophylaxis due to active bleeding Code Status Observation Plan of care discussed with patient and and his son Joanitz Ontiveros Jr. Alternative decision maker: Patient's Time Spent With Patient Time: Total time spent is greater than 50% in coordination of care (as documented) at patient's floor/unit and/or counseling patient: Total time spent with greater than 50% in coordination of care (as documented) at patient's floor/unit and/or counseling patient:: 50 - 70 minutes Critical Care Time: No
[2022-05-17] MEDS: GABAPENTIN 300 MG CAPSULE PO SCH (21:12)
[2022-05-17] MEDS: amLODIPine 5 MG TABLET PO SCH (21:12)
[2022-05-17] MEDS: DOCUSATE SODIUM 100 MG CAPSULE PO SCH ×2 (21:12→21:16)
[2022-05-17] MEDS: SENNOSIDES 1 TABLET PO SCH ×2 (21:12→21:16)
[2022-05-17] MEDS: BRIMONIDINE OPHTH DROPS 1 GTT BOTTLE 5ML OU SCH (21:13)
[2022-05-17] MEDS: Dorzolamide-Timolol 22.3-6.8 mg/mL drops OP SCH (21:13)
[2022-05-17] MEDS: LATANOPROST OPHTH DROPS 2.5ML BOTTLE OU SCH (21:13)
[2022-05-17] MEDS: 0.9 % SODIUM CHLORIDE 10 ML SYRINGE IV SCH (21:13)
[2022-05-17] MEDS: LACTATED RINGERS 1,000 ML IV SCH (22:41)
[2022-05-17] MEDS: cefTRIAXone 1 GM VIAL IV SCH (22:43)
[2022-05-18] MEDS: 0.9 % SODIUM CHLORIDE 10 ML SYRINGE IV SCH ×5 (05:09→23:23)
[2022-05-18] MEDS: LACTATED RINGERS 1,000 ML IV SCH ×4 (06:25→16:43)
[2022-05-18 06:41] LABS: Hemoglobin 10.9 g/dL (13.7-17.5); Mean Cell Volume 89.7 fL (80.0-100.0); Mean Platelet Volume 9.9 fL (8.8-12.5); Platelet Count 301 K/mcL (140-440); RBC 3.68 M/mcL (4.63-6.08); Red Cell Distribution Width 14.3 % (11.5-14.5); WBC 10.4 K/mcL (4.5-11.0)
[2022-05-18] MEDS ORDERED: LIDOCAINE 2% URO-JET 10 ML JEL.PF.APP UR ONE (06:59)
[2022-05-18] MEDS ORDERED: ceFAZolin 2 GM in DEXTROSE 5% IN WATER 50 ML IV SCH (07:00)
--- NOTE | 2022-05-18 07:04 | Urology Consult Note ---
HPI Date of Consult Consult Date: 05/18/22 Requesting physician: Jim Murphy Primary Care Provider: Beck Casper MD Consult Narrative Patient Information: Note initiated : 05/18/22 at 6:57 am Service Date, if different from initiated Date: [] Patient: Gavin Bowen 87 y/o M admitted on 05/17/22 for trnsfusion?possible check shon raines sup. 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 He has previously undergone chemotherapy. Follow-up biopsies revealed persistent urothelial carcinoma. After his last resection he has continued to have bleeding. His hemoglobin has dropped below 8 I asked him to be admitted last night to get a blood transfusion. In preparation for going to the operating room. Chief complaint: Gross hematuria and anemia Reason for consult: Continued gross hematuria with drop in hemoglobin cc:: CC: Jim Murphy Review of Systems All systems: reviewed and no additional remarkable complaints except as stated Constitutional Constitutional: Present as per HPI and fatigue Genitourinary Genitourinary: as per HPI and hematuria PFSH PFSH All Active Problems ABLA (acute blood loss anemia) (Acute) Hematuria (Acute) Abrasion forearm (Acute) Fall (Acute) Lower extremity edema (Acute) Iron deficiency anemia (Acute) Fatigue (Acute) Actinic keratoses (Acute) Dry skin (Acute) Dizziness (Acute) Peripheral neuropathy (Acute) Decubitus ulcer of buttock, stage 1 (Acute) Hematuria (Acute) Urinary retention (Chronic) High risk medication use (Acute) Ulnar tunnel syndrome (Acute) 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) Complication of Campos catheter (Acute) Bladder mass (Acute) Anemia (Acute) Ureteral stone (Acute) Renal failure (Acute) BPH loc w urin obs/LUTS (Chronic) Acquired hypothyroidism (Chronic) Essential hypertension (Chronic) Nausea & vomiting (Chronic) Dehydration (Chronic) Hypothyroidism, unspecified (Chronic) Spinal stenosis, lumbar region with neurogenic claudication (Chronic) Low back pain (Chronic) Radiculopathy, lumbar region (Chronic) Chronic pain (Chronic) Unspecified glaucoma (Chronic) Hypercholesterolemia (Chronic) History of surgery (Chronic) Hip pain, left (Chronic) 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) Radiculopathy, lumbosacral region (Acute) CTS (carpal tunnel syndrome) (Acute) Gross hematuria (Acute) Medical History Abrasion forearm Acquired hypothyroidism Actinic keratoses Chronic pain Decubitus ulcer of buttock, stage 1 Dizziness Dry skin Essential hypertension Fall Fatigue Fever High risk medication use Hypercholesterolemia Hypothyroidism, unspecified Iron deficiency anemia Low back pain Lower extremity edema Medicare annual wellness visit, subsequent Nausea Peripheral neuropathy Radiculopathy, lumbar region Radiculopathy, lumbosacral region Spinal stenosis, lumbar region with neurogenic claudication Ulnar tunnel syndrome Unspecified glaucoma Surgical History History of surgery TF NAKUL #2 Lt. L5-S1 w/o sed 11/24/2019 TF NAKUL #1 Lt. L5-S1 w/sed 07/08/2019 LESI #3 L4-5 w/o sed 10/24/2018 LESI #2 L4-5 w/o sed 09/16/18 LESI #1 L4-5 w/o sed 08/21/2018 Family History Other Cancer Hypertension No pertinent family history Social History smoking status: Former smoker quit date: 05/28/69 alcohol intake frequency: does not drink MEDS/ALLERGIES Home Medications and Allergies Home Medications Medication Instructions Recorded Confirmed Type latanoprost 0.005 % eye drops 1 drp ophthalmic (eye) QPM 10/30/19 05/17/22 History omega 1-con-nsg-fish oil 1,000 mg 1 cap PO QDAY 02/10/20 05/17/22 History (120 mg-180 mg) capsule brimonidine 0.2 % eye drops 1 drp ophthalmic (eye) BID 08/16/20 05/17/22 History blood sugar diagnostic #100 ea 07/25/21 05/17/22 Rx metformin 500 mg tablet 1,000 mg PO BID #360 tabs 09/20/21 05/17/22 Rx glipizide 5 mg tablet 5 mg PO QDAY #90 tabs 01/23/22 05/17/22 Rx levothyroxine 75 mcg tablet 75 mcg PO DAILY #90 tabs 01/23/22 05/17/22 Rx Campos catheter stabilization device #1 ea 02/22/22 05/17/22 Rx gabapentin 300 mg capsule 300 mg PO BID 02/24/22 05/17/22 History losartan 100 1 tab PO QAM 02/24/22 05/17/22 History mg-hydrochlorothiazide 25 mg tablet mecobalamin (vitamin B12) 1,000 1,000 mcg PO QDAY 02/24/22 05/17/22 History mcg lozenges amlodipine 5 mg tablet 5 mg PO BID #180 tabs 04/03/22 05/17/22 Rx dorzolamide 22.3 mg-timolol 6.8 1 drp ophthalmic (eye) BID 04/06/22 05/17/22 History mg/mL eye drops Allergies Allergy/AdvReac Type Severity Reaction Status Date / Time ciprofloxacin [From Cipro] AdvReac Intermediate Unknown Verified 05/16/22 14:06 Physical Examination Vital Signs Vital signs: Temp Pulse Resp BP Pulse Ox O2 Del Method 97.7 F 59 L 16 158/65 95 05/18/22 02:43 05/18/22 02:43 05/18/22 02:43 05/18/22 02:43 05/18/22 02:43 05/18/22 02:43 General physical appearance General physical exam: well developed, no distress, no pain and chronically ill Eyes Eye exam: PERRL Head Head exam IM: Present atraumatic, normal inspection and normocephalic Neck Neck exam: trachea midline Cardiovascular Cardiovascular exam IM: Present normal rate and rhythm Respiratory Respiratory exam: normal expansion, normal respiratory effort and clear to auscultation Abdomen Abdomen: Present soft and non tender Psychiatric Psychiatric: Present oriented to time, oriented to person, oriented to place and speech is normal Results Labs Result diagrams: 05/18/22 05:40 05/18/22 05:40 Labs: Abnormal lab results 05/17/22 05/17/22 05/18/22 Range/Units 15:01 15:07 05:40 RBC 2.60 L 3.68 L (4.63-6.08) M/mcL Hgb 7.7 L 10.9 L (13.7-17.5) g/dL Hct 24.8 L 33.0 L (40.1-51.0) % POC Hct 25.0 L (41-55) Lymph % (Auto) 11.5 L (15.5-49.0) % Eos % (Auto) 8.5 H (0.0-7.0) % Lymph # (Auto) 1.01 L (1.50-4.80) K/mcL Eos # (Auto) 0.74 H (0.00-0.70) K/mcL POC BUN 32 H (6-20) POC Creatinine 1.7 H (0.6-1.2) POC Glucose 131 H (70-105) All other labs normal. 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 He has previously undergone resection followed by chemotherapy. Postchemotherapy reresection showed persistent can cer. Since his last resection is continued to have gross hematuria. I asked for him to be admitted to the hospital last night due to anemia. His hemoglobin was 7.6. I wanted him to obtain blood prior to going to the operating room in case there was blood loss. Today we plan to go to the operating room for cystoscopy, evacuation of clot and fulguration of bleeding. He understands that I am not going to resect more than I need to. I will resect what I need to do to try to stop the bleeding. With muscle invasive cancer that goes deep there is no guarantee that I will be able to stop it. We discussed the procedure and its risks. He understands and agrees to proceed. A signed consent form was previously obtained last week and we plan to do this electively next week. Today is being done emergently due to the low hemoglobin. In addition to the patient I spoke with his and his son. Postoperatively, if he does well without significant bleeding he may go home. Time Spent With Patient Time: Total time spent is greater than 50% in coordination of care (as documented) at patient's floor/unit and/or counseling patient:
[2022-05-18 07:17] LABS: Blood Urea Nitrogen 27 mg/dL (8-23); Calcium 8.9 mg/dL (8.6-10.4); Carbon Dioxide 28 mmol/L (22-30); Chloride 104 mmol/L (96-108); Glomerular Filtration Rate 45; Glucose 127 mg/dL (70-105)
[2022-05-18] MEDS: LEVOTHYROXINE 75 MCG TABLET PO SCH (07:26)
[2022-05-18] MEDS ORDERED: IPRATROPIUM/ALBUTEROL 3 ML AMPUL.NEB NEB PRN ×2 (08:00→09:23)
[2022-05-18] MEDS ORDERED: SCOPOLAMINE 1 PATCH PATCH TOPICAL PRN (08:00)
[2022-05-18] MEDS ORDERED: PHENYLephrine 1 MG/10 ML SYRINGE (ANEST) ONE (09:03)
[2022-05-18] MEDS ORDERED: fentaNYL 100 MCG/2 ML VIAL IV ONE (09:03)
[2022-05-18] MEDS ORDERED: ePHEDrine 50 MG/5 ML SYRINGE (ANEST) IV ONE (09:03)
[2022-05-18] MEDS ORDERED: SUGAMMADEX SODIUM 200 MG/2 ML VIAL IV ONE (09:03)
[2022-05-18] MEDS ORDERED: SUCCINYLCHOLINE 20 MG/ML ML IV ONE (09:03)
[2022-05-18] MEDS ORDERED: ONDANSETRON 4 MG/2 ML VIAL ONE (09:03)
[2022-05-18] MEDS ORDERED: ROCURONIUM 10 MG/ML ML IV ONE (09:03)
[2022-05-18] MEDS ORDERED: GLYCOPYRROLATE 0.2 MG/ML VIAL IV ONE (09:03)
[2022-05-18] MEDS ORDERED: DEXAMETHASONE 10 MG/ML VIAL ONE (09:03)
[2022-05-18] MEDS ORDERED: LIDOCAINE HCL/PF 100 MG/5 ML SYRINGE IV ONE (09:03)
[2022-05-18] MEDS ORDERED: PROPOFOL 200 MG/20 ML VIAL IV ONE (09:03)
[2022-05-18] MEDS ORDERED: KETAMINE 50 MG/ML Syringe (ANEST) IV ONE (09:03)
[2022-05-18] MEDS ORDERED: MAGNESIUM SULFATE 2 GM/50 ML BAG IV ONE (09:03)
[2022-05-18 09:21] LABS: Band Neutrophils % 1 % (0-10); Eosinophils % (Manual) 8 % (0-7); Lymphocytes % 10 % (15-49); Monocytes % (Manual) 6 % (1-12); Platelet Estimate NORMAL (Normal); RBC Morphology NORMAL (Normal); Segmented Neutrophils % 75 % (38-78)
[2022-05-18] MEDS ORDERED: METOPROLOL TARTRATE 5 MG/5 ML VIAL IV PRN (09:23)
[2022-05-18] MEDS ORDERED: METHOCARBAMOL 1,000 MG/10 ML VIAL IV PRN (09:23)
[2022-05-18] MEDS ORDERED: NALOXONE HCL 0.4 MG/ML VIAL IV PRN (09:23)
[2022-05-18] MEDS ORDERED: fentaNYL 100 MCG/2 ML VIAL IV PRN (09:23)
[2022-05-18] MEDS ORDERED: ONDANSETRON 4 MG/2 ML VIAL IV PRN (09:23)
[2022-05-18] MEDS ORDERED: LACTATED RINGERS 250 ML IV PRN (09:23)
[2022-05-18] MEDS ORDERED: ACETAMINOPHEN 1,000 MG/100 ML BAG IV ONE (09:23)
[2022-05-18] MEDS ORDERED: LABETALOL 5 MG/ML ML IV PRN (09:23)
[2022-05-18] MEDS: BRIMONIDINE OPHTH DROPS 1 GTT BOTTLE 5ML OU SCH ×2 (10:08→23:22)
[2022-05-18] MEDS: DOCUSATE SODIUM 100 MG CAPSULE PO SCH ×2 (10:09→23:22)
[2022-05-18] MEDS: LOSARTAN 50 MG TABLET PO SCH ×2 (10:09→13:54)
[2022-05-18] MEDS: Dorzolamide-Timolol 22.3-6.8 mg/mL drops OP SCH ×2 (10:09→23:22)
[2022-05-18] MEDS: GABAPENTIN 300 MG CAPSULE PO SCH ×2 (10:09→20:57)
[2022-05-18] MEDS: amLODIPine 5 MG TABLET PO SCH ×3 (10:09→20:57)
[2022-05-18] MEDS: HYDROCHLOROTHIAZIDE 25 MG TABLET PO SCH (10:09)
--- NOTE | 2022-05-18 10:23 | Operative Note ---
Brief Operative Note Date of procedure: 05/18/22 Pre-op diagnosis: Muscle invasive bladder cancer with sarcomatoid differentiat ion and gross h Post-op diagnosis: same Procedure: Cystoscopy, evacuation of clot, transurethral resection of residual bladder tumor, fulguration of bleeding. Grafts/Implants: Yes (22 [place] Campos catheter with 15 mL in balloon) Anesthesia: GETA Findings: Significant residual tumor that was friable and bleeding. Resected. Hemostasis obtained. Complications: none Surgeon: Jhoan Mehat Estimated blood loss (cc): 25 Specimens Removed/Pathology: other (Bladder tumor.) Condition: stable Disposition: PACU Operative Note Operative Note: After obtaining informed consent from the patient, he was brought to the operating room was placed supine on the operating table. General anesthesia was provided. He was repositioned in a dorsolithotomy position was prepped and draped in usual sterile fashion. Attention was directed to the urethral meatus where a 21 [place] scope was passed per urethra and into the bladder. The bladder was inspected and seen to have significant clot and debris. The cystoscope was removed. The urethra was calibrated using [place] sounds to 30 [place]. The 28 [place] continuous-flow resectoscope sheath with obturator was and easily passed into the bladder. The operators removed and the bipolar resectoscope element was placed. I began by evacuating clot and found significant friable tumor below it. I began resecting the tumor until I obtained tissue that was more easily cauterized. I resected all of the mucinous and friable tissue. I then used a button electrode to further vaporize and cauterize the base of the resection areas. At the end of the procedure there was no active bleeding identified. The entire bladder mucosa was friable the tumor involves the right lateral wall the bladder, the right trigone and the bladder neck. Tumor chips were evacuated and passed off the table as specimens for pathologic examination. The bladder was filled and the resectoscope was removed. Lidocaine jelly was placed in urethra in the bladder. A 22 [place] Campos catheter was and easily passed per urethra and into the bladder. The balloon was inflated with 15 mL of sterile water. This was placed to gravity drainage was hand irrigated and ran clear to clear light pink. The patient was then returned to the spine position. He was awakened returned to the recovery in stable condition.
--- NOTE | 2022-05-18 11:44 | EKG ---
[facility] Test Date: 2022-05-17 Pat Name: Gavin Bowen Department: ED Room: Gender: Male [employer]: STEPHEN : 1935 Requested By: Jim Murphy Order Number: [id number] Reading MD: Frank Lopez M.D. Measurements Intervals [place] Rate: 128 P: CO: QRS: -43 QRSD: 138 T: 88 QT: 417 QTc: 610 Interpretive Statements SINUS RHYTHM Left bundle branch block No significant change compared to prior ECG. Electronically Signed On 05-18-2022 11:43:36 PST by Frank Lopez M.D. /[id number]/[id number]
[2022-05-18] MEDS: cefTRIAXone 1 GM VIAL IV SCH (20:56)
[2022-05-18] MEDS: SENNOSIDES 1 TABLET PO SCH (23:23)
[2022-05-18] MEDS: LATANOPROST OPHTH DROPS 2.5ML BOTTLE OU SCH (23:23)
[2022-05-19] MEDS: LACTATED RINGERS 1,000 ML IV SCH ×2 (03:32→05:31)
[2022-05-19] MEDS: 0.9 % SODIUM CHLORIDE 10 ML SYRINGE IV SCH ×2 (05:31→05:32)
[2022-05-19] MEDS: LEVOTHYROXINE 75 MCG TABLET PO SCH (07:21)
[2022-05-19] MEDS: LOSARTAN 50 MG TABLET PO SCH (08:52)
[2022-05-19] MEDS: amLODIPine 5 MG TABLET PO SCH (08:52)
[2022-05-19] MEDS: HYDROCHLOROTHIAZIDE 25 MG TABLET PO SCH (08:53)
[2022-05-19] MEDS: DOCUSATE SODIUM 100 MG CAPSULE PO SCH (08:53)
[2022-05-19] MEDS: GABAPENTIN 300 MG CAPSULE PO SCH (08:53)
--- NOTE | 2022-05-19 09:08 | Urology Progress Note ---
SUBJECTIVE Subjective Patient information: Note initiated : 05/19/22 at 9:06 am Service Date, if different from initiated Date: [] Patient: Gavin Bowen 87 y/o M admitted on 05/17/22 for trnsfusion?possible check shon raines sup. 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 He is doing well. The urine remains a clear medium red. Constitutional Vitals: Vital Signs Temp Pulse Resp BP Pulse Ox O2 Del Method O2 Flow Rate 97.4 F 66 16 157/72 93 2 05/19/22 07:55 05/19/22 03:30 05/19/22 07:55 05/19/22 07:55 05/19/22 07:55 05/19/22 07:55 05/18/22 11:24 Period Temp Pulse Resp BP Sys/Jackson Pulse Ox O2 Del Method O2 Flow Rate Last 24 Hr 97 F-98.2 F 58-87 10-20 128-182/60-80 90-100 Nasal Cannula- Simple Mask 2-6 Intake and Output 05/18/22 05/19/22 05/19/22 19:59 03:59 11:59 Intake Total 240 1149 780 Output Total 250 550 Balance -10 1149 230 Intake & Output: Intake & Output 05/18/22 05/19/22 05/19/22 19:59 03:59 11:59 Intake Total 240 1149 780 Output Total 250 550 Balance -10 1149 230 Intake: IV 909 300 Lactated Ringers 1,000 ml @ 84 909 300 mls/hr IV .[id number] [facility] Rx#: [id number] Oral 240 240 480 Output: Urine Catheter Amount 250 550 Other: Meal Dinner Percent of Meal Consumed 100% Urine Appearance Hematuria Hematuria Uretheral (Campos) Hematuria Urine Color Blood Tinged Light [place] Uretheral (Campos) Blood Tinged Urine Odor Normal General appearance: no acute distress and thin Head Head exam: Present atraumatic, normal inspection and normocephalic Respiratory Respiratory exam: Present normal respiratory exam and CTAB Cardiovascular Cardiovascular exam: Present normal rate and rhythm Expanded Exam Urine Appearance: Clear Urine Color: Medium Red Psychiatric Psychiatric exam: Present normal affect and normal mood A/P Assessment and plan (1) Gross hematuria: Status: Acute (2) 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 Has been having significant gross hematuria that decrease his hemoglobin to below 8. He was admitted to the hospital for a blood transfusion followed by repeat transurethral resection of bladder tumor with fulguration of bleeding which was performed yesterday. His urine remains a medium red color which I think will clear up with time as a removed as much and cauterized as much as I could. He is doing better today. He has better color. He should be able to go home today with outpatient follow- up next week. Time Spent With Patient Time: Total time spent is greater than 50% in coordination of care (as documented) at patient's floor/unit and/or counseling patient: Total time spent with greater than 50% in coordination of care (as documented) at patient's floor/unit and/or counseling patient:: less than 15 minutes
--- NOTE | 2022-05-19 09:24 | Discharge Summary ---
Discharge Provider Provider IMPORTANT FOLLOW-UP INFORMATION FOR PCP: Patient information: Note initiated : 05/19/22 at 9:16 am Patient: Gavin Bowen 87 y/o M admitted on 05/17/22 for trnsfusion?possible check shon raines sup. Chief Complaint: Hematuria Date of admission: 05/17/22 18:31 Discharge date: 05/19/22 Primary care physician: Beck Casper MD Admitting clinician: Jim Murphy Attending physician on admission: Jim Murphy Consults: 05/17/22 Consult to Physician [CONS] Stat Comment: Consulting Provider: Jhoan Mehta Reason For Exam: Physician to Consult Consult to Physician [CONS] Stat Comment: Consulting Provider: Jim Murphy Reason For Exam: Physician to Consult Attending physician on discharge: Jim Murphy Discharging clinician: Jim Murphy COURSE Hospital Course Hospital course: Mr. Bowen is a 87 year old pleasant male with past medical history significant for invasive residual high-grade papillary urothelial carcinoma followed by urologist Dr. Mehta sent to emergency room from urology clinic with worsening hematuria and acute on chronic blood loss: #Acute on chronic blood loss anemia due to hematuria -Hemoglobin 7.7 g/DL. S/p 2 PRBC. Dc Hb is #Worsening hematuria due to invasive high-grade papillary bladder cancer # Muscle invasive bladder cancer with sarcomatoid differentiation and gross hematuria - S/p resection by 02/28/22 - S/p Cystoscopy, evacuation of clot, transurethral resection of residual bladder tumor, fulguration of bleeding and (22 [place] Campos catheter with 15 mL in balloon 05/18/22 - Dc home with Campos and follow up with in one week. # Pre Op Risk stratification - Rivised cardiac risk index is 0 points, Class I Risk, 3.9 % 30-day risk of , [place], or cardiac arrest - EKG shows LBBB which is old. (No A.fib). No evidence of ACS, decompensated CHF, stroke. -I recommended to proceed with surgery with no further testing at this time #Glaucoma. Continue home eyedrops # CKD III. Admit Cr 1.8. Dc Cr 1.4. Follow up OP #HTN: Cont home Losartan/hydrochlorothiazide/amlodipine. #DM 2: on Metformin 1000 mg twice daily and glipizide. Continue #Hypothyroidism: Cont home levothyroxine 25 mcg daily Disposition: Patient discharged home Condition on discharge: Hemodynamically stable. Tolerated p.o. Discharge activity: As tolerated Discharge diet: Healthy, low-fat, diabetic Discharge medication: See med reconciliation form Discharge follow-up: Urology Dr. Mehta in 1 week, primary care physician within 1 week for post hospital follow-up Discharge diagnosis: Hematuria due to bladder cancer Reason for admission: See above Procedures: See above Time Spent with Patient Time attestation: Total time spent providing and/or coordinating discharge services: Time spent: Greater than 30 minutes EXAM Constitutional Vitals: Temp Pulse Resp BP Pulse Ox O2 Del Method O2 Flow Rate 97.4 F 66 16 157/72 93 2 05/19/22 07:55 05/19/22 03:30 05/19/22 07:55 05/19/22 07:55 05/19/22 07:55 05/19/22 07:55 05/18/22 11:24 Exam: General: Pleasant elderly male, thin, awake alert oriented x3. No apparent distress HEENT: PERRLA, moist mucous membrane. Anicteric sclera Chest: No point tenderness. Lungs: Clear to auscultation bilaterally. No crackles rhonchi or rales. Cardiovascular: Regular rate and rhythm. S1 + S2, no murmur gallop rub. No peripheral edema. No JVD GI: Abdomen soft, nontender, positive bowel sounds. No hepatosplenomegaly. No rebound tenderness. No CVA tenderness : Campos catheter in place with bloody urine. No suprapubic pubic tenderness. BINDER SORTER: Awake alert oriented x3. Cranial nerves II through XII 12 grossly intact. Discharge Data Data Completed and Pending Labs on day of discharge: Labs from last 24 hours 05/18/22 05:40 Seg Neutrophils % 75 Band Neutrophils % 1 Lymphocytes % 10 L Monocytes % (Manual) 6 Eosinophils % (Manual) 8 H Platelet Estimate Normal RBC Morphology Normal Discharge Plan Patient/Caregiver Discharge Instructions Activity: increase activity as tolerated Diet: Cardiac and Consistent Carbohydrate Activity Restrictions/Additional Instructions: Campos catheter care per Dr. Mehta recommendation Prescriptions: Continued latanoprost 0.005 % drops 1 drp OPHTHALMIC QPM metformin 500 mg tablet 1,000 mg PO BID Qty: 360 2RF levothyroxine 75 mcg tablet 75 mcg PO DAILY Qty: 90 1RF glipizide 5 mg tablet 5 mg PO QDAY Qty: 90 3RF amlodipine 5 mg tablet 5 mg PO BID Qty: 180 1RF brimonidine 0.2 % drops 1 drp ophthalmic (eye) BID Rx Instructions: administer approximately 8 hours apart omega 4-cae-qxa-fish oil 1,000 mg (120 mg-180 mg) capsule 1 cap PO QDAY mecobalamin (vitamin B12) 1,000 mcg Lozenge 1,000 mcg PO QDAY Rx Instructions: allow to dissolve in mouth OR may chew lightly before swallowing losartan-hydrochlorothiazide 100-25 mg tablet 1 tab PO QAM gabapentin 300 mg capsule 300 mg PO BID dorzolamide-timolol 22.3-6.8 mg/mL drops 1 drp ophthalmic (eye) BID No Action (DME) blood sugar diagnostic Strip See Rx Instructions .ROUTE .MEDSUPPLY Qty: 100 3RF Rx Instructions: use to test blood sugars once daily (DME) Campos catheter stabilization device See Rx Instructions .Route .MEDSUPPLY Qty: 1 6RF Rx Instructions: As directed Follow Up Plan Follow up with: Beck Casper MD [Primary Care Provider] - Jhoan Mehta MD [Physician] - (Follow up in one week ) Patient Disposition: Home, Self-Care Prognosis: Fair Rehab Potential: Good I certify that the patient requires SNF services: No Overall status at discharge: patient is back to baseline Discharge Orders: Discharge Order (Routine); Ordered 05/19/22 Ordered By: Jim WATSON VTE Deep Vein Thrombosis/Pulmonary Embolism Present on Admission: No
--- NOTE | 2022-05-19 09:27 | Internal Med Progress Note ---
SUBJECTIVE Subjective Patient information: Note initiated : 05/19/22 at 9:24 am Service Date, if different from initiated Date: Progress note for 05/18/2022. Late entry Patient: Gavin Bowen 87 y/o M admitted on 05/17/22 for trnsfusion?possible check yannashon sup. 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 Pertinent ROS: Except as documented all systems reviewed and negative Constitutional Vitals: Vital Signs Temp Pulse Resp BP Pulse Ox O2 Del Method O2 Flow Rate 97.4 F 66 16 157/72 93 2 05/19/22 07:55 05/19/22 03:30 05/19/22 07:55 05/19/22 07:55 05/19/22 07:55 05/19/22 07:55 05/18/22 11:24 Period Temp Pulse Resp BP Sys/Jackson Pulse Ox O2 Del Method O2 Flow Rate Last 24 Hr 97 F-98.2 F 58-87 10-20 128-182/60-80 90-100 Nasal Cannula- Simple Mask 2-6 Intake and Output 05/18/22 05/19/22 05/19/22 19:59 03:59 11:59 Intake Total 240 1149 780 Output Total 250 550 Balance -10 1149 230 Intake & Output: Intake & Output 05/18/22 05/19/22 05/19/22 19:59 03:59 11:59 Intake Total 240 1149 780 Output Total 250 550 Balance -10 1149 230 Intake: IV 909 300 Lactated Ringers 1,000 ml @ 84 909 300 mls/hr IV .[id number] [facility] Rx#: [id number] Oral 240 240 480 Output: Urine Catheter Amount 250 550 Other: Meal Dinner Percent of Meal Consumed 100% Urine Appearance Hematuria Clear Uretheral (Campos) Hematuria Urine Color Blood Tinged Medium Red Uretheral (Campos) Blood Tinged Urine Odor Normal General: Pleasant elderly male, thin, awake alert oriented x3. No apparent distress HEENT: PERRLA, moist mucous membrane. Anicteric sclera Chest: No point tenderness. Lungs: Clear to auscultation bilaterally. No crackles rhonchi or rales. Cardiovascular: Regular rate and rhythm. S1 + S2, no murmur gallop rub. No peripheral edema. No JVD GI: Abdomen soft, nontender, positive bowel sounds. No hepatosplenomegaly. No rebound tenderness. No CVA tenderness : Campos catheter in place with bloody urine. No suprapubic pubic tenderness. DIRECTIONAL DRILLER: Awake alert oriented x3. Cranial nerves II through XII 12 grossly intact. OBJ DATA Labs CBC & Chem 7: 05/18/22 05:40 05/18/22 05:40 Labs: Abnormal Lab Results 05/18/22 05/18/22 05/17/22 05:40 05:40 15:07 RBC 3.68 L Hgb 10.9 L Hct 33.0 L POC Hct 25.0 L Lymph % (Auto) Eos % (Auto) Lymph # (Auto) Eos # (Auto) Lymphocytes % 10 L Eosinophils % (Manual) 8 H POC BUN 32 H BUN 27 H Creatinine 1.4 H POC Creatinine 1.7 H Glucose 127 H POC Glucose 131 H 05/17/22 15:01 RBC 2.60 L Hgb 7.7 L Hct 24.8 L POC Hct Lymph % (Auto) 11.5 L Eos % (Auto) 8.5 H Lymph # (Auto) 1.01 L Eos # (Auto) 0.74 H Lymphocytes % Eosinophils % (Manual) POC BUN BUN Creatinine POC Creatinine Glucose POC Glucose Meds: Medications Acetaminophen (Acetaminophen 325 Mg Tablet) 650 mg PO Q6HP PRN; Protocol PRN Reason: Per Pain Protocol/Fever > 101 Hydrocodone Bitart/Acetaminophen (Hydrocodone/Apap 5/325mg Tablet) 1 tab PO Q4HP PRN; Protocol PRN Reason: Per Pain Protocol Amlodipine Besylate (Amlodipine 5 Mg Tablet) 5 mg PO BID [facility] Last Admin: 05/19/22 08:52 Dose: 5 mg Brimonidine Tartrate (Brimonidine Ophth Drops 1 Gtt Bottle 5ml) 1 gtt OU BID [facility] Last Admin: 05/18/22 23:22 Dose: Not Given Ceftriaxone Sodium (Ceftriaxone 1 Gm Vial) 1 gm IV Q24H [facility] Last Admin: 05/18/22 20:56 Dose: 1 gm Docusate Sodium (Docusate Sodium 100 Mg Capsule) 100 mg PO BID [facility] Last Admin: 05/19/22 08:53 Dose: 100 mg Gabapentin (Gabapentin 300 Mg Capsule) 300 mg PO BID [facility] Last Admin: 05/19/22 08:53 Dose: 300 mg Hydrochlorothiazide (Hydrochlorothiazide 25 Mg Tablet) 25 mg PO QAM [facility] Last Admin: 05/19/22 08:53 Dose: 25 mg Lactated Ringer's (Lactated Ringers) 1,000 mls @ 84 mls/hr IV .[id number] [facility] Last Infusion: 05/19/22 07:45 Dose: Infused Latanoprost (Latanoprost Ophth Drops 2.5ml Bottle) 1 gtt OU QPM [facility] Last Admin: 05/18/22 23:23 Dose: Not Given Levothyroxine Sodium (Levothyroxine 75 Mcg Tablet) 75 mcg PO 0730 [facility] Last Admin: 05/19/22 07:21 Dose: 75 mcg Losartan Potassium (Losartan 50 Mg Tablet) 100 mg PO DAILY [facility] Last Admin: 05/19/22 08:52 Dose: 100 mg Ondansetron HCl (Ondansetron 4 Mg/2 Ml Vial) 4 mg IV Q6HP PRN PRN Reason: Nausea And Vomiting Ondansetron HCl (Ondansetron 4 Mg Odt Tablet) 4 mg SL Q6HP PRN PRN Reason: Nausea And Vomiting Dorzolamide-Timolol (22.3-6.8 Mg/Ml Drops) 1 dose OP BID [facility] Last Admin: 05/18/22 23:22 Dose: Not Given Senna (Sennosides 1 Tablet) 2 tab PO HS [facility] Last Admin: 05/18/22 23:23 Dose: Not Given Sodium Chloride (0.9 % Sodium Chloride 10 Ml Syringe) 10 ml IV Q8 [facility] Last Admin: 05/19/22 05:31 Dose: Not Given Sodium Chloride (0.9 % Sodium Chloride 10 Ml Syringe) 10 ml IV Q8 [facility] Last Admin: 05/19/22 05:32 Dose: Not Given A/P Narrative A/P Narrative: Mr. Bowen is a 87 year old pleasant male with past medical history significant for invasive residual high-grade papillary urothelial carcinoma followed by urologist Dr. Mehta sent to emergency room from urology clinic with worsening hematuria and acute on chronic blood loss: #Acute on chronic blood loss anemia due to hematuria -Hemoglobin 7.7 g/DL. -s/p 2 unit packed RBC since patient is going to the OR today. Hemoglobin 10.7 #Worsening hematuria due to invasive high-grade papillary bladder cancer # Invasive residual high-grade papillary urothelial carcinoma -Going to the OR today # Pre Op Risk stratification - Rivised cardiac risk index is 0 points, Class I Risk, 3.9 % 30-day risk of , [place], or cardiac arrest - EKG shows LBBB which is old. (No A.fib). No evidence of ACS, decompensated CHF, stroke. -I recommend to proceed with surgery with no further testing at this time #Glaucoma. Continue home eyedrops #CKD III: Follow BMP. Creatinine 1.4 from 1.8 #HTN: Cont home Losartan/hydrochlorothiazide/amlodipine. #DM 2: on Metformin 1000 mg twice daily and glipizide. Hold both for now and Do SSI #Hypothyroidism: Cont home levothyroxine 25 mcg daily DVT PPX: Chemical prophylaxis due to active bleeding Code Status Observation Plan of care discussed with patient and and his son Joan Jr. Weston Alternative decision maker: Patient's Disposition: Can discharge home tomorrow Time Spent With Patient Time: Total time spent is greater than 50% in coordination of care (as documented) at patient's floor/unit and/or counseling patient: Total time spent with greater than 50% in coordination of care (as documented) at patient's floor/unit and/or counseling patient:: 25 - 35 minutes Critical Care Time: No QUALITY VTE Deep Vein Thrombosis/Pulmonary Embolism Present on Admission: No
[2022-05-19] MEDS: Dorzolamide-Timolol 22.3-6.8 mg/mL drops OP SCH (11:29)
[2022-05-19] MEDS: BRIMONIDINE OPHTH DROPS 1 GTT BOTTLE 5ML OU SCH (11:29)
== END 2022-05-19 12:15 | disposition home or self-care (01) ==
LOC: ED 14:38 → MEDSUR 14:38
PROVIDERS: ADMIT Internal Medicine; ATTEND Internal Medicine